=== PATIENT | female | born 1955 | race Hispanic/Latino ===

== ENCOUNTER 2017-07-02 07:56 | Inpatient (IN) | payer MEDICAID ==
[2017-07-02] MEDS ORDERED: DUONEB *Not for PRN Use IH ONE (08:25)
--- NOTE | 2017-07-02 08:30 | Emergency Department Report ---
HPI - General Chief Complaint: Dyspnea/Respdistress Time Seen by Provider: 07/02/17 08:11 - HPI HPI: This is a 62-year-old female who presents to the emergency department by EMS with complaint of progressively worsening shortness of breath. She has some intermittent chest pains and/or "twinges." The patient says that this is been going on for a long time but more recently it has gotten even worse with exertion and it is gotten to the point where she is unable to do her job appropriately. She has a past medical history of asthma, COPD, coronary artery disease with [place] in 2005 and stents placed, hypertension, peripheral vascular disease with previous ileo-bifemoral bypass and lower extremity stents, carotid artery disease and hyperlipidemia. She still is a daily smoker. 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 No recent travel or sick contacts at home. She has not taken anything for her symptoms prior to presentation. ED Past Medical Hx - Past Medical History Previous Medical History?: Yes Hx Hypertension: Yes Hx Heart Attack/AMI: Yes (IN 2005) Hx Arthritis: Yes Hx Asthma: Yes Hx COPD: Yes Additional medical history: HIGH CHOLESTEROL, peripheral vascular disease, carotid artery disease, aortobifemoral disease - Surgical History Past Surgical History?: Yes Hx Coronary Stent: Yes (X 4) Hx Cholecystectomy: Yes Additional Surgical History: Ileo-bifemoral bypass surgery - Social History Smoking Status: Current Every Day Smoker Substance Use Type: None - Medications Home Medications: Home Medications Medication Instructions Recorded Confirmed Last Taken Type Levothyroxine Sodium 137 mcg PO QAM 07/02/17 07/02/17 07/02/17 History [Levothyroxine] Metoprolol [Lopressor] 25 mg PO DAILY 07/02/17 07/02/17 07/02/17 History ED Review of Systems ROS: Stated complaint: DIFFICULTY BREATHING Other details as noted in HPI Comment: All other systems reviewed and negative Constitutional: denies: chills, fever Eyes: denies: eye pain, eye discharge, vision change ENT: denies: ear pain, throat pain Respiratory: cough, shortness of breath, SOB with exertion, wheezing Cardiovascular: chest pain (intermittent). denies: syncope Gastrointestinal: denies: abdominal pain, nausea, diarrhea Genitourinary: denies: urgency, dysuria, discharge Musculoskeletal: denies: back pain, joint swelling, arthralgia Skin: denies: rash, lesions Neurological: denies: headache, weakness, paresthesias Physical Exam - Physical Exam Vital Signs: Vital Signs 07/02/17 08:07 Temperature 98 F Pulse Rate 98 H Respiratory 22 Rate Blood Pressure 196/98 O2 Sat by Pulse 95 Oximetry Physical Exam: GENERAL: The patient is well-developed well-nourished. HENT: Normocephalic. Atraumatic. Patient has moist mucous membranes. EYES: Extraocular motions are intact. Pupils equal reactive to light bilaterally. NECK: Supple. Trachea is midline. CHEST/LUNGS: There is some wheezing that chest. A dry cough heard with coughing fits. No tachypnea or accessory muscle use. While at rest. There is no respiratory distress noted. HEART/CARDIOVASCULAR: Regular. There is no tachycardia. There is no murmur. ABDOMEN: Abdomen is soft, nontender. Patient has normal bowel sounds. There is no abdominal distention. SKIN: Skin is warm and dry. NEURO: The patient is awake, alert, and oriented. The patient is cooperative. The patient has no focal neurologic deficits. The patient has normal speech. MUSCULOSKELETAL: There is no tenderness or deformity. There is no limitation range of motion. There is no evidence of acute injury. ED Course Vital Signs 07/02/17 08:07 Temperature 98 F Pulse Rate 98 H Respiratory 22 Rate Blood Pressure 196/98 O2 Sat by Pulse 95 Oximetry ED Medical Decision Making - Lab Data Result diagrams: 07/02/17 08:32 07/02/17 08:35 - EKG Data -: EKG Interpreted by Me EKG shows normal: sinus rhythm, axis, intervals, QRS complexes, ST-T waves ( nonspecific ST-T waves, mild depression to the lateral leads) Rate: normal - EKG Data When compared to previous EKG there are: previous EKG unavailable Interpretation: nonspecific ST-T wave renaldo (with mild depression to the lateral leads) - Radiology Data Radiology results: report reviewed, image reviewed interpreted by me: Chest x-ray does not show any acute process. There are no pleural effusions, obvious pneumonia and there is no pneumothorax. CTA CHEST: HISTORY: Shortness of breath, elevated d-dimer. COMPARISON: none. TECHNIQUE: Helical CT in 1.25mm intervals following IV contrast. Pulmonary embolus protocol. Sagittal and coronal reformatted images. Rotational MIP images. FINDINGS: Contrast bolus is satisfactory. No pulmonary embolus is identified. Thyroid gland: Normal. Tracheobronchial tree: Normal. Esophagus: Normal. Heart: Normal. Pericardium: Normal. Mediastinum: No evidence for mass or adenopathy. Moderate atherosclerotic disease is noted in the thoracic aorta. No aneurysm or dissection. Lung Romero: Mild centrilobular emphysematous changes are identified in the upper lobes. Mild atelectatic changes at the lung bases. No evidence for mass or pneumonia. Pleural Spaces: Normal. 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 The remaining bony structures are intact. Moderate thoracic spondylosis. IMPRESSION: No evidence for pulmonary embolus. Mild emphysema. 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 Transcribed By: TTR Dictated By: GREGORY HERNANDEZ JR, MD Electronically Authenticated By: GREGORY HERNANDEZ JR, MD Signed Date/Time: 07/02/17 1022 Right lower extremity venous Doppler is negative for DVT. - Medical Decision Making Patient presents with some shortness of breath, intermittent chest pains, and some right leg pain and weakness with exertion. This appears consistent with some intermittent, occasionally the leg she has good distal pulses. Venous Doppler negative for DVT. Labs are mostly unremarkable. CT angiography shows emphysema but no PE, dissection. However the patient cannot walk very far without getting winded and having leg pain. She has a history of carotid stenosis, peripheral vascular disease, coronary artery disease. Please reason she will be admitted to the hospital for further evaluation and treatment has been accepted for admission by the hospitalist, Dr. Zimmer. - Differential Diagnosis COPD, PE, DVT, Intermittent claudication, carotid stenosis Critical Care Time: No Critical care attestation.: If time is entered above; I have spent that time in minutes in the direct care of this critically ill patient, excluding procedure time. ED Disposition Clinical Impression: Smoking, History of carotid artery disease, Intermittent claudication, Peripheral vascular disease Dyspnea Qualifiers: Dyspnea type: shortness of breath Qualified Code(s): R06.02 - Shortness of breath Disposition: OP ADMIT IP TO THIS HOSP Is pt being admited?: Yes Does the pt Need Aspirin: Yes Condition: Stable Time of Disposition: 12:26
[2017-07-02] MEDS ORDERED: APRESOLINE IV ONE (08:31)
--- NOTE | 2017-07-02 08:46 | XRay Report ---
AP CHEST: HISTORY: chest pain AP view of the chest demonstrates a normal mediastinal and cardiac contour with clear lungs and normal bony and soft tissue structures. IMPRESSION: No acute cardiopulmonary process identified.
[2017-07-02 09:03] LABS: Basophils % (Auto) 0.3 % (0.0-1.8); Eosinophils # (Auto) 0.2 K/mm3 (0.0-0.4); Eosinophils % (Auto) 3.1 % (0.0-4.3); Hematocrit 40.1 % (30.3-42.9); Hemoglobin 13.2 gm/dl (10.1-14.3); Lymphocytes # (Auto) 1.1 K/mm3 (1.2-5.4); Lymphocytes % (Auto) 16.8 % (13.4-35.0); Mean Corpuscular HGB Conc 33 % (30-34); Mean Corpuscular Hemoglobin 30 pg (28-32); Mean Corpuscular Volume 91 fl (79-97); Monocytes # (Auto) 0.9 K/mm3 (0.0-0.8); Monocytes % (Auto) 13.9 % (0.0-7.3); Platelet Count 242 K/mm3 (140-440); Red Blood Count 4.42 M/mm3 (3.65-5.03); Red Cell Distribution Width 14.6 % (13.2-15.2)
[2017-07-02 09:16] LABS: Alanine Aminotransferase 32 units/L (7-56); Albumin 3.9 g/dL (3.9-5); BUN/Creatinine Ratio 27; Blood Urea Nitrogen 16 mg/dL (7-17); Calcium 8.9 mg/dL (8.4-10.2); Hemolysis Index 20
[2017-07-02 09:40] LABS: Bilirubin,Urine NEG (Negative); Blood,Urine SM (Negative); Color,Urine Yellow (Yellow); Mucus,Urine FEW /HPF; Nitrite,Urine NEG (Negative); Protein,Urine <15 mg/dL mg/dL (Negative); Urobilinogen,Urine < 2.0 mg/dL (<2.0); WBC,Urine < 1.0 /HPF (0.0-6.0)
[2017-07-02] MEDS ORDERED: NACL ONE (10:06)
--- NOTE | 2017-07-02 10:28 | Cat Scan Report ---
CTA CHEST: HISTORY: Shortness of breath, elevated d-dimer. COMPARISON: none. TECHNIQUE: Helical CT in 1.25mm intervals following IV contrast. Pulmonary embolus protocol. Sagittal and coronal reformatted images. Rotational MIP images. FINDINGS: Contrast bolus is satisfactory. No pulmonary embolus is identified. Thyroid gland: Normal. Tracheobronchial tree: Normal. Esophagus: Normal. Heart: Normal. Pericardium: Normal. Mediastinum: No evidence for mass or adenopathy. Moderate atherosclerotic disease is noted in the thoracic aorta. No aneurysm or dissection. Lung Romero: Mild centrilobular emphysematous changes are identified in the upper lobes. Mild atelectatic changes at the lung bases. No evidence for mass or pneumonia. Pleural Spaces: Normal. 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 The remaining bony structures are intact. Moderate thoracic spondylosis. IMPRESSION: No evidence for pulmonary embolus. Mild emphysema. 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
[2017-07-02] MEDS: HEPARIN SUB-Q SCH ×2 (14:17→21:58)
[2017-07-02] MEDS ORDERED: NON-FORMULARY (Melatonin 5 MG) PO PRN (20:52)
--- NOTE | 2017-07-02 23:15 | History and Physical Report ---
History of Present Illness Date of examination: 07/02/17 Date of admission: 07/02/17 12:27 Chief complaint: Increasing SOB for 1 week History of present illness: ADAL 62-year-old female presents to the emergency department by EMS with complaint of progressively worsening shortness of breath. She has some intermittent chest pains and/or "twinges." The patient says that this is been going on for a long time but more recently it has gotten even worse with exertion and it is gotten to the point where she is unable to do her job appropriately. She has a past medical history of asthma, COPD, coronary artery disease with [place] in 2005 and stents placed, hypertension, peripheral vascular disease with previous ileo-bifemoral bypass and lower extremity stents, carotid artery disease and hyperlipidemia. She still is a daily smoker. 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 No recent travel or sick contacts at home. She has not taken anything for her symptoms prior to presentation. Past Medical History Previous Medical History?: Yes Hx Hypertension: Yes Hx Heart Attack/AMI: Yes (IN 2005) Hx Arthritis: Yes Hx Asthma: Yes Hx COPD: Yes Additional medical history: HIGH CHOLESTEROL, peripheral vascular disease, carotid artery disease, aortobifemoral disease -Surgical History Past Surgical History?: Yes Hx Coronary Stent: Yes (X 4) Hx Cholecystectomy: Yes Additional Surgical History: Ileo-bifemoral bypass surgery Social History Smoking Status: Current Every Day Smoker Substance Use Type: None Medications Home Medications: Home Medications Medication Instructions Recorded Confirmed Last Taken Type Levothyroxine Sodium 137 mcg PO QAM 07/02/17 07/02/17 07/02/17 History [Levothyroxine] Metoprolol [Lopressor] 25 mg PO DAILY 07/02/17 07/02/17 07/02/17 History Review of Systems Stated complaint: DIFFICULTY BREATHING Other details as noted in HPI Comment: All other systems reviewed and negative Constitutional: denies: chills, fever Eyes: denies: eye pain, eye discharge, vision change ENT: denies: ear pain, throat pain Respiratory: cough, shortness of breath, SOB with exertion, wheezing Cardiovascular: chest pain (intermittent). denies: syncope Gastrointestinal: denies: abdominal pain, nausea, diarrhea Genitourinary: denies: urgency, dysuria, discharge Musculoskeletal: denies: back pain, joint swelling, arthralgia Skin: denies: rash, lesions Neurological: denies: headache, weakness, paresthesias Medications and Allergies Allergies Allergy/AdvReac Type Severity Reaction Status Date / Time NSAIDS (Non-Steroidal AdvReac Unknown Verified 06/05/13 00:07 Anti-Inflamma Home Medications Medication Instructions Recorded Confirmed Last Taken Type Levothyroxine Sodium 137 mcg PO QAM 07/02/17 07/02/17 07/02/17 History [Levothyroxine] Metoprolol [Lopressor] 25 mg PO DAILY 07/02/17 07/02/17 07/02/17 History Active Meds: Active Medications Heparin Sodium (Porcine) (Heparin) 5,000 unit SUB-Q Q8HR STEVEN Last Admin: 07/02/17 21:58 Dose: 5,000 unit Miscellaneous Medication (Melatonin) 5 mg PO QHS PRN PRN Reason: Insomnia Exam - Constitutional Vitals: Temp Pulse Resp BP Pulse Ox 99.3 F 92 H 20 157/83 93 07/02/17 20:17 07/02/17 20:17 07/02/17 20:17 07/02/17 20:17 07/02/17 20:17 General appearance: Present: mild distress, well-nourished - EENT Eyes: Present: PERRL ENT: hearing intact, clear oral mucosa - Neck Neck: Present: supple, normal ROM - Respiratory Respiratory effort: normal Respiratory: bilateral: CTA, diminished, rhonchi - Cardiovascular Heart rate: 80 Rhythm: regular Heart Sounds: Present: S1 & S2. Absent: rub, click - Extremities Extremities: pulses symmetrical, No edema Peripheral Pulses: within normal limits - Abdominal General gastrointestinal: Present: soft, non-tender, non-distended, normal bowel sounds Female genitourinary: Present: normal - Rectal Rectal Exam: deferred - Integumentary Integumentary: Present: clear, warm, dry - Musculoskeletal Musculoskeletal: gait normal, strength equal bilaterally - Psychiatric Psychiatric: appropriate mood/affect, intact judgment & insight - Neurologic Neurologic: CNII-XII intact, moves all extremities - Allied Health Allied health notes reviewed: nursing, case management Results - Labs CBC & Chem 7: 07/02/17 08:32 07/02/17 08:35 Labs: Laboratory Last Values WBC 6.5 K/mm3 (4.5-11.0) 07/02/17 08:32 RBC 4.42 M/mm3 (3.65-5.03) 07/02/17 08:32 Hgb 13.2 gm/dl (10.1-14.3) 07/02/17 08:32 Hct 40.1 % (30.3-42.9) 07/02/17 08:32 MCV 91 fl (79-97) 07/02/17 08:32 MCH 30 pg (28-32) 07/02/17 08:32 MCHC 33 % (30-34) 07/02/17 08:32 RDW 14.6 % (13.2-15.2) 07/02/17 08:32 Plt Count 242 K/mm3 (140-440) 07/02/17 08:32 Lymph % (Auto) 16.8 % (13.4-35.0) 07/02/17 08:32 [place] % (Auto) 13.9 % (0.0-7.3) H 07/02/17 08:32 Eos % (Auto) 3.1 % (0.0-4.3) 07/02/17 08:32 Baso % (Auto) 0.3 % (0.0-1.8) 07/02/17 08:32 Lymph # 1.1 K/mm3 (1.2-5.4) L 07/02/17 08:32 [place] # 0.9 K/mm3 (0.0-0.8) H 07/02/17 08:32 Eos # 0.2 K/mm3 (0.0-0.4) 07/02/17 08:32 Baso # 0.0 K/mm3 (0.0-0.1) 07/02/17 08:32 Seg Neutrophils % 65.9 % (40.0-70.0) 07/02/17 08:32 Seg Neutrophils # 4.2 K/mm3 (1.8-7.7) 07/02/17 08:32 D-Dimer 489.27 ng/mlDDU (0-234) H 07/02/17 08:35 POC ABG pH 7.380 (7.35-7.45) 07/02/17 13:46 POC ABG pCO2 29.9 (35-45) L 07/02/17 13:46 POC ABG pO2 62 (80-105) L 07/02/17 13:46 POC ABG HCO3 17.7 07/02/17 13:46 POC ABG Total CO2 19 07/02/17 13:46 POC ABG O2 Sat 91 07/02/17 13:46 POC ABG Base Excess -7 07/02/17 13:46 FiO2 21 % 07/02/17 13:46 Sodium 134 mmol/L (137-145) L 07/02/17 08:35 Potassium 4.1 mmol/L (3.6-5.0) 07/02/17 08:35 Chloride 99.8 mmol/L (98-107) 07/02/17 08:35 Carbon Dioxide 21 mmol/L (22-30) L 07/02/17 08:35 Anion Gap 17 mmol/L 07/02/17 08:35 BUN 16 mg/dL (7-17) 07/02/17 08:35 Creatinine 0.6 mg/dL (0.7-1.2) L 07/02/17 08:35 Estimated GFR > 60 ml/min 07/02/17 08:35 BUN/Creatinine Ratio 27 % 07/02/17 08:35 Glucose 114 mg/dL (65-100) H 07/02/17 08:35 Calcium 8.9 mg/dL (8.4-10.2) 07/02/17 08:35 Total Bilirubin 0.20 mg/dL (0.1-1.2) 07/02/17 08:35 AST 17 units/L (5-40) 07/02/17 08:35 ALT 32 units/L (7-56) 07/02/17 08:35 Alkaline Phosphatase 97 units/L (35-129) 07/02/17 08:35 Troponin T < 0.010 ng/mL (0.00-0.029) 07/02/17 16:00 NT-Pro-B Natriuret Pep 332.7 pg/mL (0-900) 07/02/17 08:35 Total Protein 7.1 g/dL (6.3-8.2) 07/02/17 08:35 Albumin 3.9 g/dL (3.9-5) 07/02/17 08:35 Albumin/Globulin Ratio 1.2 % 07/02/17 08:35 Urine Color Yellow (Yellow) 07/02/17 09:05 Urine Turbidity Clear (Clear) 07/02/17 09:05 Urine pH 5.0 (5.0-7.0) 07/02/17 09:05 Ur Specific [place] 1.010 (1.003-1.030) 07/02/17 09:05 Urine Protein <15 mg/dl mg/dL (Negative) 07/02/17 09:05 Urine Glucose (UA) Neg mg/dL (Negative) 07/02/17 09:05 Urine Ketones Neg mg/dL (Negative) 07/02/17 09:05 Urine Blood Sm (Negative) 07/02/17 09:05 Urine Nitrite Neg (Negative) 07/02/17 09:05 Urine Bilirubin Neg (Negative) 07/02/17 09:05 Urine Urobilinogen < 2.0 mg/dL (<2.0) 07/02/17 09:05 Ur Leukocyte Esterase Neg (Negative) 07/02/17 09:05 Urine WBC (Auto) < 1.0 /HPF (0.0-6.0) 07/02/17 09:05 Urine RBC (Auto) 1.0 /HPF (0.0-6.0) 07/02/17 09:05 U Epithel Cells (Auto) 1.0 /HPF (0-13.0) 07/02/17 09:05 Urine Mucus Few /HPF 07/02/17 09:05 - Imaging and Cardiology Chest x-ray: report reviewed (NAF) CT scan - chest: report reviewed (NAF No PE) Assessment and Plan Advance Directives: Yes (Full code) VTE prophylaxis?: Chemical Plan of care discussed with patient/family: Yes - Patient Problems (1) COPD exacerbation Current Visit: Yes Status: Acute Plan to address problem: No resp failure Duonebs IV abx and iv solumedrol (2) Chest pain Current Visit: Yes Status: Chronic Plan to address problem: CE's and Lexiscan on 07/04/15 (3) Peripheral vascular disease Current Visit: Yes Status: Chronic Plan to address problem: on pletal (4) HTN (hypertension) Current Visit: Yes Status: Chronic Qualifiers: Hypertension type: essential hypertension Qualified Code(s): I10 - Essential (primary) hypertension Plan to address problem: Cont antihyertensives (5) Hypothyroidism (acquired) Current Visit: Yes Status: Chronic Plan to address problem: Cont Levothyroxine (6) Nicotine dependence Current Visit: Yes Status: Chronic Qualifiers: Nicotine product type: cigarettes Plan to address problem: Counselled 10 minutes Nicoderm patch initiated (7) DVT prophylaxis Current Visit: Yes Status: Acute Plan to address problem: On Lovenox
[2017-07-02] MEDS ORDERED: MILK OF MAGNESIA PO PRN (23:16)
[2017-07-02] MEDS ORDERED: DULCOLAX PR PRN (23:16)
[2017-07-02] MEDS ORDERED: DILAUDID IV PRN (23:16)
[2017-07-02] MEDS ORDERED: ZOFRAN IV PRN (23:16)
[2017-07-02] MEDS ORDERED: DUONEB *Not for PRN Use IH (23:19)
[2017-07-02] MEDS ORDERED: PROVENTIL IH PRN (23:30)
[2017-07-03] MEDS ORDERED: AMBIEN PO ONE (00:37)
[2017-07-03] MEDS: HABITROL TD SCH ×2 (01:06→21:43)
[2017-07-03] MEDS: SYNTHROID PO SCH ×2 (05:49)
[2017-07-03] MEDS: HEPARIN SUB-Q SCH ×3 (05:50→21:45)
[2017-07-03] MEDS: DUONEB *Not for PRN Use IH SCH ×4 (06:35→21:10)
[2017-07-03 08:43] LABS: Alanine Aminotransferase 34 units/L (7-56); BUN/Creatinine Ratio 28; Blood Urea Nitrogen 17 mg/dL (7-17); Calcium 8.9 mg/dL (8.4-10.2); Hemolysis Index 8
[2017-07-03] MEDS ORDERED: NON-FORMULARY (Levothyroxine Sodium [Levothyroxine] 137 MCG) PO SCH (10:00)
[2017-07-03] MEDS: LEVAQUIN 750MG/150ML 750 MG/150 ML BAG IV SCH (11:00)
[2017-07-03] MEDS: LOPRESSOR PO SCH (11:01)
[2017-07-03] MEDS: PEPCID PO SCH ×2 (11:01→21:43)
--- NOTE | 2017-07-03 11:02 | Progress Note ---
Assessment and Plan Assessment and plan: COPD exacerbation Duonebs IV abx and iv solumedrol Chest pain CE's and Lexiscan on 07/04/15 Peripheral vascular disease Cont. on pletal HTN (hypertension) Cont antihyertensives Hypothyroidism (acquired) Cont Levothyroxine Nicotine dependence Counseled in the ER on admission. Pt. reports 42 pack year history Urinary incontinence Start ditropan DVT prophylaxis On Lovenox History Interval history: No new c/o CP. Mild SOB with exertion Hospitalist Physical - Constitutional Vitals: Temp Pulse Resp BP Pulse Ox 98.5 F 85 16 124/58 94 07/03/17 07:46 07/03/17 08:45 07/03/17 08:45 07/03/17 07:46 07/03/17 07:46 General appearance: Present: no acute distress, well-nourished - EENT Eyes: Present: PERRL, EOM intact ENT: hearing intact, clear oral mucosa, dentition normal - Neck Neck: Present: supple, normal ROM - Respiratory Respiratory effort: normal Respiratory: bilateral: diminished, rhonchi, wheezing - Cardiovascular Rhythm: regular Heart Sounds: Present: S1 & S2. Absent: gallop, rub - Extremities Extremities: no ischemia, No edema, Full ROM - Abdominal General gastrointestinal: soft, non-tender, non-distended, normal bowel sounds - Integumentary Integumentary: Present: clear, warm, dry - Neurologic Neurologic: CNII-XII intact, moves all extremities Results - Labs CBC & Chem 7: 07/02/17 08:32 07/03/17 07:36 Labs: Laboratory Last Values WBC 6.5 K/mm3 (4.5-11.0) 07/02/17 08:32 RBC 4.42 M/mm3 (3.65-5.03) 07/02/17 08:32 Hgb 13.2 gm/dl (10.1-14.3) 07/02/17 08:32 Hct 40.1 % (30.3-42.9) 07/02/17 08:32 MCV 91 fl (79-97) 07/02/17 08:32 MCH 30 pg (28-32) 07/02/17 08:32 MCHC 33 % (30-34) 07/02/17 08:32 RDW 14.6 % (13.2-15.2) 07/02/17 08:32 Plt Count 242 K/mm3 (140-440) 07/02/17 08:32 Lymph % (Auto) 16.8 % (13.4-35.0) 07/02/17 08:32 [place] % (Auto) 13.9 % (0.0-7.3) H 07/02/17 08:32 Eos % (Auto) 3.1 % (0.0-4.3) 07/02/17 08:32 Baso % (Auto) 0.3 % (0.0-1.8) 07/02/17 08:32 Lymph # 1.1 K/mm3 (1.2-5.4) L 07/02/17 08:32 [place] # 0.9 K/mm3 (0.0-0.8) H 07/02/17 08:32 Eos # 0.2 K/mm3 (0.0-0.4) 07/02/17 08:32 Baso # 0.0 K/mm3 (0.0-0.1) 07/02/17 08:32 Seg Neutrophils % 65.9 % (40.0-70.0) 07/02/17 08:32 Seg Neutrophils # 4.2 K/mm3 (1.8-7.7) 07/02/17 08:32 D-Dimer 489.27 ng/mlDDU (0-234) H 07/02/17 08:35 POC ABG pH 7.380 (7.35-7.45) 07/02/17 13:46 POC ABG pCO2 29.9 (35-45) L 07/02/17 13:46 POC ABG pO2 62 (80-105) L 07/02/17 13:46 POC ABG HCO3 17.7 07/02/17 13:46 POC ABG Total CO2 19 07/02/17 13:46 POC ABG O2 Sat 91 07/02/17 13:46 POC ABG Base Excess -7 07/02/17 13:46 FiO2 21 % 07/02/17 13:46 Sodium 140 mmol/L (137-145) 07/03/17 07:36 Potassium 4.7 mmol/L (3.6-5.0) 07/03/17 07:36 Chloride 100.0 mmol/L (98-107) 07/03/17 07:36 Carbon Dioxide 22 mmol/L (22-30) 07/03/17 07:36 Anion Gap 23 mmol/L 07/03/17 07:36 BUN 17 mg/dL (7-17) 07/03/17 07:36 Creatinine 0.6 mg/dL (0.7-1.2) L 07/03/17 07:36 Estimated GFR > 60 ml/min 07/03/17 07:36 BUN/Creatinine Ratio 28 % 07/03/17 07:36 Glucose 162 mg/dL (65-100) H 07/03/17 07:36 Hemoglobin A1c 5.6 % (4-6) 07/02/17 23:42 Calcium 8.9 mg/dL (8.4-10.2) 07/03/17 07:36 Total Bilirubin < 0.20 mg/dL (0.1-1.2) 07/03/17 07:36 AST 16 units/L (5-40) 07/03/17 07:36 ALT 34 units/L (7-56) 07/03/17 07:36 Alkaline Phosphatase 95 units/L (35-129) 07/03/17 07:36 Troponin T < 0.010 ng/mL (0.00-0.029) 07/03/17 07:36 NT-Pro-B Natriuret Pep 332.7 pg/mL (0-900) 07/02/17 08:35 Total Protein 7.3 g/dL (6.3-8.2) 07/03/17 07:36 Albumin 4.0 g/dL (3.9-5) 07/03/17 07:36 Albumin/Globulin Ratio 1.2 % 07/03/17 07:36 Urine Color Yellow (Yellow) 07/02/17 09:05 Urine Turbidity Clear (Clear) 07/02/17 09:05 Urine pH 5.0 (5.0-7.0) 07/02/17 09:05 Ur Specific [place] 1.010 (1.003-1.030) 07/02/17 09:05 Urine Protein <15 mg/dl mg/dL (Negative) 07/02/17 09:05 Urine Glucose (UA) Neg mg/dL (Negative) 07/02/17 09:05 Urine Ketones Neg mg/dL (Negative) 07/02/17 09:05 Urine Blood Sm (Negative) 07/02/17 09:05 Urine Nitrite Neg (Negative) 07/02/17 09:05 Urine Bilirubin Neg (Negative) 07/02/17 09:05 Urine Urobilinogen < 2.0 mg/dL (<2.0) 07/02/17 09:05 Ur Leukocyte Esterase Neg (Negative) 07/02/17 09:05 Urine WBC (Auto) < 1.0 /HPF (0.0-6.0) 07/02/17 09:05 Urine RBC (Auto) 1.0 /HPF (0.0-6.0) 07/02/17 09:05 U Epithel Cells (Auto) 1.0 /HPF (0-13.0) 07/02/17 09:05 Urine Mucus Few /HPF 07/02/17 09:05
[2017-07-03] MEDS: PLETAL PO SCH ×2 (11:16→21:43)
[2017-07-03] MEDS: DITROPAN PO SCH ×2 (11:43→21:43)
[2017-07-03] MEDS ORDERED: Fluarix Quad 2017-2018(36 MOS+ IM ONE (12:00)
[2017-07-03] MEDS: PERCOCET 5/325 PO PRN (23:47)
[2017-07-04] MEDS ORDERED: TESSALON PERLES PO PRN (00:20)
[2017-07-04] MEDS: DUONEB *Not for PRN Use IH SCH ×4 (02:01→19:42)
[2017-07-04] MEDS: SYNTHROID PO SCH ×2 (05:03)
[2017-07-04] MEDS: HEPARIN SUB-Q SCH ×3 (05:04→22:52)
[2017-07-04 06:38] LABS: Basophils % (Auto) 0.1 % (0.0-1.8); Hematocrit 37.2 % (30.3-42.9); Hemoglobin 12.5 gm/dl (10.1-14.3); Lymphocytes % (Auto) 9.7 % (13.4-35.0); Mean Corpuscular HGB Conc 34 % (30-34); Mean Corpuscular Hemoglobin 31 pg (28-32); Mean Corpuscular Volume 91 fl (79-97); Monocytes # (Auto) 0.7 K/mm3 (0.0-0.8); Monocytes % (Auto) 7.2 % (0.0-7.3); Platelet Count 225 K/mm3 (140-440); Red Blood Count 4.08 M/mm3 (3.65-5.03); Red Cell Distribution Width 14.9 % (13.2-15.2)
[2017-07-04 06:46] LABS: BUN/Creatinine Ratio 35; Blood Urea Nitrogen 21 mg/dL (7-17); Calcium 8.7 mg/dL (8.4-10.2); Hemolysis Index 14
[2017-07-04] MEDS ORDERED: LEXISCAN IV ONE ×2 (08:41→08:43)
--- NOTE | 2017-07-04 10:31 | Progress Note ---
Assessment and Plan Assessment and plan: COPD exacerbation Duonebs IV abx and iv solumedrol Chest pain F/U Lexiscan today. CE are negative Peripheral vascular disease Cont. on pletal. Pt. c/o RLE pain with ambulation ? ischemic pain. Pt with previuos stent. Vascular consult HTN (hypertension) Cont antihyertensives Hypothyroidism (acquired) Cont Levothyroxine Nicotine dependence Counseled in the ER on admission. Pt. reports 42 pack year history Urinary incontinence Start ditropan DVT prophylaxis On Lovenox History Interval history: No new c/o CP. Mild SOB with exertion. Pt. also c/o RLE pain with ambulation. ? ischemic pain. Hospitalist Physical - Constitutional Vitals: Temp Pulse Resp BP Pulse Ox 98.0 F 95 H 22 133/73 93 07/03/17 23:32 07/03/17 23:32 07/03/17 23:32 07/03/17 23:32 07/03/17 23:32 General appearance: Present: no acute distress, well-nourished - EENT Eyes: Present: PERRL, EOM intact ENT: hearing intact, clear oral mucosa, dentition normal - Neck Neck: Present: supple, normal ROM - Respiratory Respiratory effort: normal Respiratory: bilateral: CTA - Cardiovascular Rhythm: regular Heart Sounds: Present: S1 & S2. Absent: gallop, rub - Extremities Extremities: no ischemia, No edema, Full ROM - Abdominal General gastrointestinal: soft, non-tender, non-distended, normal bowel sounds - Integumentary Integumentary: Present: clear, warm, dry - Neurologic Neurologic: CNII-XII intact, moves all extremities Results - Labs CBC & Chem 7: 07/04/17 06:07 07/04/17 06:07 Labs: Laboratory Last Values WBC 9.9 K/mm3 (4.5-11.0) 07/04/17 06:07 RBC 4.08 M/mm3 (3.65-5.03) 07/04/17 06:07 Hgb 12.5 gm/dl (10.1-14.3) 07/04/17 06:07 Hct 37.2 % (30.3-42.9) 07/04/17 06:07 MCV 91 fl (79-97) 07/04/17 06:07 MCH 31 pg (28-32) 07/04/17 06:07 MCHC 34 % (30-34) 07/04/17 06:07 RDW 14.9 % (13.2-15.2) 07/04/17 06:07 Plt Count 225 K/mm3 (140-440) 07/04/17 06:07 Lymph % (Auto) 9.7 % (13.4-35.0) L 07/04/17 06:07 [place] % (Auto) 7.2 % (0.0-7.3) 07/04/17 06:07 Eos % (Auto) 0.0 % (0.0-4.3) 07/04/17 06:07 Baso % (Auto) 0.1 % (0.0-1.8) 07/04/17 06:07 Lymph # 1.0 K/mm3 (1.2-5.4) L 07/04/17 06:07 [place] # 0.7 K/mm3 (0.0-0.8) 07/04/17 06:07 Eos # 0.0 K/mm3 (0.0-0.4) 07/04/17 06:07 Baso # 0.0 K/mm3 (0.0-0.1) 07/04/17 06:07 Seg Neutrophils % 83.0 % (40.0-70.0) H 07/04/17 06:07 Seg Neutrophils # 8.2 K/mm3 (1.8-7.7) H 07/04/17 06:07 D-Dimer 489.27 ng/mlDDU (0-234) H 07/02/17 08:35 POC ABG pH 7.380 (7.35-7.45) 07/02/17 13:46 POC ABG pCO2 29.9 (35-45) L 07/02/17 13:46 POC ABG pO2 62 (80-105) L 07/02/17 13:46 POC ABG HCO3 17.7 07/02/17 13:46 POC ABG Total CO2 19 07/02/17 13:46 POC ABG O2 Sat 91 07/02/17 13:46 POC ABG Base Excess -7 07/02/17 13:46 FiO2 21 % 07/02/17 13:46 Sodium 140 mmol/L (137-145) 07/04/17 06:07 Potassium 4.6 mmol/L (3.6-5.0) 07/04/17 06:07 Chloride 102.0 mmol/L (98-107) 07/04/17 06:07 Carbon Dioxide 23 mmol/L (22-30) 07/04/17 06:07 Anion Gap 20 mmol/L 07/04/17 06:07 BUN 21 mg/dL (7-17) H 07/04/17 06:07 Creatinine 0.6 mg/dL (0.7-1.2) L 07/04/17 06:07 Estimated GFR > 60 ml/min 07/04/17 06:07 BUN/Creatinine Ratio 35 % 07/04/17 06:07 Glucose 165 mg/dL (65-100) H 07/04/17 06:07 Hemoglobin A1c 5.6 % (4-6) 07/02/17 23:42 Calcium 8.7 mg/dL (8.4-10.2) 07/04/17 06:07 Total Bilirubin < 0.20 mg/dL (0.1-1.2) 07/03/17 07:36 AST 16 units/L (5-40) 07/03/17 07:36 ALT 34 units/L (7-56) 07/03/17 07:36 Alkaline Phosphatase 95 units/L (35-129) 07/03/17 07:36 Troponin T < 0.010 ng/mL (0.00-0.029) 07/04/17 06:07 NT-Pro-B Natriuret Pep 332.7 pg/mL (0-900) 07/02/17 08:35 Total Protein 7.3 g/dL (6.3-8.2) 07/03/17 07:36 Albumin 4.0 g/dL (3.9-5) 07/03/17 07:36 Albumin/Globulin Ratio 1.2 % 07/03/17 07:36 Urine Color Yellow (Yellow) 07/02/17 09:05 Urine Turbidity Clear (Clear) 07/02/17 09:05 Urine pH 5.0 (5.0-7.0) 07/02/17 09:05 Ur Specific [place] 1.010 (1.003-1.030) 07/02/17 09:05 Urine Protein <15 mg/dl mg/dL (Negative) 07/02/17 09:05 Urine Glucose (UA) Neg mg/dL (Negative) 07/02/17 09:05 Urine Ketones Neg mg/dL (Negative) 07/02/17 09:05 Urine Blood Sm (Negative) 07/02/17 09:05 Urine Nitrite Neg (Negative) 07/02/17 09:05 Urine Bilirubin Neg (Negative) 07/02/17 09:05 Urine Urobilinogen < 2.0 mg/dL (<2.0) 07/02/17 09:05 Ur Leukocyte Esterase Neg (Negative) 07/02/17 09:05 Urine WBC (Auto) < 1.0 /HPF (0.0-6.0) 07/02/17 09:05 Urine RBC (Auto) 1.0 /HPF (0.0-6.0) 07/02/17 09:05 U Epithel Cells (Auto) 1.0 /HPF (0-13.0) 07/02/17 09:05 Urine Mucus Few /HPF 07/02/17 09:05 Influenza A (Rapid) Negative (Negative) 07/03/17 11:45 Influenza B (Rapid) Negative (Negative) 07/03/17 11:45
[2017-07-04] MEDS: PERCOCET 5/325 PO PRN (12:30)
[2017-07-04] MEDS: LOPRESSOR PO SCH (12:36)
[2017-07-04] MEDS: LEVAQUIN 750MG/150ML 750 MG/150 ML BAG IV SCH (12:37)
[2017-07-04] MEDS: DITROPAN PO SCH ×2 (12:37→22:56)
[2017-07-04] MEDS: PEPCID PO SCH ×2 (12:47→22:55)
[2017-07-04] MEDS: PLETAL PO SCH ×2 (12:47→23:01)
--- NOTE | 2017-07-04 13:52 | Consultation ---
History of Present Illness - Reason for Consult Consult date: 07/04/17 Right leg pain - History of Present Illness 62-year-old female smoker with past medical history of COPD, asthma, CAD with FL in 2005 s/p 4 stents, HTN, PAD with right iliac stents, known severe carotid stenosis who presented to the emergency department by EMS with complaint of progressively worsening shortness of breath, intermittent chest pains and/or "twinges." This has been going on for a long time but more recently it has gotten even worse with exertion and it is gotten to the point where she is unable to do her job appropriately. Regarding her right leg, she reports that she can walk approximately 20 feet before experiencing claudication which is lifestyle limiting and disabling. She hangs her foot off the bed at night, but this is secondary to restless legs , so she doesn't kick her other leg. The patient also reports that she has had a severe 75% internal carotid artery narrowing for multiple years, at least 10. Denies TIA. No history of bypass. The patient reports a history of right iliac artery stenting 10 years ago. Past History Past Medical History: acute FL (2005 s/p 4 stents), arthritis, CAD, COPD (w/ asthma), hypertension, hyperlipidemia, hypothyroidism, PVD, other (carotid artery disease) Past Surgical History: cholecystectomy, Other (4 coronary stents ; right iliac stent ) Social history: smoking Family history: no significant family history Medications and Allergies Allergies Allergy/AdvReac Type Severity Reaction Status Date / Time NSAIDS (Non-Steroidal AdvReac Unknown Verified 06/05/13 00:07 Anti-Inflamma Home Medications Medication Instructions Recorded Confirmed Last Taken Type Levothyroxine Sodium 137 mcg PO QAM 07/02/17 07/02/17 07/02/17 History [Levothyroxine] Metoprolol [Lopressor] 25 mg PO DAILY 07/02/17 07/02/17 07/02/17 History Active Meds: Active Medications Acetaminophen (Tylenol) 650 mg PO Q4H PRN PRN Reason: Pain MILD(1-3)/Fever >100.5/ÁLVAREZ Albuterol (Proventil) 2.5 mg IH Q3HRT PRN PRN Reason: Wheezing Albuterol/Ipratropium (Duoneb *Not For Prn Use*) 1 ampul IH Q6HRT STEVEN Last Admin: 07/04/17 09:18 Dose: Not Given Benzonatate (Tessalon Perles) 100 mg PO Q8HR PRN PRN Reason: Cough Bisacodyl (Dulcolax) 10 mg AR QDAY PRN PRN Reason: Constipation unrelieved by MOM Cilostazol (Pletal) 100 mg PO BID [facility] Last Admin: 07/04/17 12:47 Dose: 100 mg Famotidine (Pepcid) 20 mg PO BID [facility] Last Admin: 07/04/17 12:47 Dose: 20 mg Heparin Sodium (Porcine) (Heparin) 5,000 unit SUB-Q Q8HR [facility] Last Admin: 07/04/17 05:04 Dose: 5,000 unit Hydromorphone HCl (Dilaudid) 0.5 mg IV Q3H PRN PRN Reason: Pain , Severe (7-10) Levofloxacin/Dextrose (Levaquin 750mg/150ml) 750 mg in 150 mls @ 100 mls/hr IV Q24HR [facility] PRN Reason: Protocol Last Admin: 07/04/17 12:37 Dose: 100 mls/hr Levothyroxine Sodium (Synthroid) 112 mcg PO DAILY@0600 [facility] Last Admin: 07/04/17 05:03 Dose: 112 mcg Levothyroxine Sodium (Synthroid) 25 mcg PO DAILY@0600 [facility] Last Admin: 07/04/17 05:03 Dose: 25 mcg Magnesium Hydroxide (Milk Of Magnesia) 30 ml PO Q4H PRN PRN Reason: Constipation Methylprednisolone Sodium Succinate (Solu-Medrol) 60 mg IV Q8HR [facility] Last Admin: 07/04/17 05:03 Dose: 60 mg Metoprolol Tartrate (Lopressor) 25 mg PO DAILY [facility] Last Admin: 07/04/17 12:36 Dose: 25 mg Nicotine (Habitrol) 21 mg TD QDAY@2200 [facility] Last Admin: 07/03/17 21:43 Dose: 21 mg Ondansetron HCl (Zofran) 4 mg IV Q8H PRN PRN Reason: N/V unrelieved by Reglan Oxybutynin Chloride (Ditropan) 5 mg PO BID [facility] Last Admin: 07/04/17 12:37 Dose: 5 mg Oxycodone/Acetaminophen (Percocet 5/325) 1 tab PO Q6H PRN PRN Reason: Pain, Moderate (4-6) Last Admin: 07/04/17 12:30 Dose: 1 tab Review of Systems All systems: negative (see HPI) Exam - Constitutional Vitals: Temp Pulse Resp BP Pulse Ox 98.4 F 81 20 150/80 94 07/04/17 12:31 07/04/17 12:31 07/04/17 12:31 07/04/17 12:31 07/04/17 12:31 General appearance: Present: no acute distress - EENT Eyes: Present: EOM intact ENT: hearing intact - Neck Neck: Present: supple - Respiratory Respiratory effort: normal - Extremities Extremities: normal temperature, normal color Peripheral Pulses: abnormal (right pedal pulses nonpalpable ; left pedal pulses palpable) - Abdominal General gastrointestinal: Present: soft - Psychiatric Psychiatric: appropriate mood/affect, cooperative Results - Labs CBC & Chem 7: 07/04/17 06:07 07/04/17 06:07 Labs: Abnormal lab results 07/04/17 07/04/17 Range/Units 06:07 06:07 Lymph % (Auto) 9.7 L (13.4-35.0) % Lymph # 1.0 L (1.2-5.4) K/mm3 Seg Neutrophils % 83.0 H (40.0-70.0) % Seg Neutrophils # 8.2 H (1.8-7.7) K/mm3 BUN 21 H (7-17) mg/dL Creatinine 0.6 L (0.7-1.2) mg/dL Glucose 165 H (65-100) mg/dL Assessment and Plan 62-year-old female with COPD, coronary artery disease with 4 stents, cholecystectomy, right iliac stenting, known carotid artery disease and peripheral vascular disease who presents with multiple complaints after obtaining insurance which she did not have for 10 years. The patient is being stressed for her chest pain. She claims to have known at least 75% internal carotid artery narrowing and is obtaining a carotid ultrasound for her known carotid artery disease. No TIA. Further recommendations based on carotid ultrasound. She is obtaining arterial Dopplers for her known right iliac disease. She has palpable left pedal pulses are nonpalpable right pedal pulses. I suspect she has either occlusion or stenosis of the right iliac arteries. Further recommendations based on lower extremity arterial ultrasound.
[2017-07-04] MEDS ORDERED: PLAVIX PO ONE (15:46)
--- NOTE | 2017-07-04 18:56 | Cat Scan Report ---
FINAL REPORT EXAM: CT ANGIO NECK HISTORY: carotid stenosis/occlusion TECHNIQUE: CT of the head and neck with intravenous contrast CT angiogram multiplanar and maximum intensity projection reconstructions were obtained PRIORS: None. FINDINGS: There is calcified and noncalcified plaque at the aortic arch At the origin of the right brachiocephalic there is some calcified plaque formation with focal stenosis estimated approximately 60 percent. Right subclavian artery is patent The right common carotid artery demonstrates some calcified plaque formation without hemodynamically significant stenosis estimated approximately 30 percent. There is calcified plaque at the origin of the right ICA and carotid bulb estimated degree of stenosis approximately 50-60 percent. The mid to distal right ICA is patent. There is calcified plaque within the cavernous right ICA without hemodynamically significant stenosis. There is complete occlusion of the left common carotid artery at the origin. At the bifurcation of the left ECA and ICA there is significant calcified and noncalcified plaque formation. There is flow to the left ICA and ECA distributions. At the cavernous left ICA there is calcified and noncalcified plaque with moderate stenosis. Both vertebral arteries are patent. There is luminal narrowing with plaque formation at the origin of the left vertebral artery with moderate stenosis appears greater than 50 percent Basilar artery is patent and there is flow seen to the EXCAVATOR BACKHOE OPERATOR distributions bilaterally The VIMAL and MCA distributions are unremarkable bilaterally. No evidence for major vascular occlusion. IMPRESSION: Complete occlusion of the left common carotid artery. Significant plaque formation at the left carotid bulb with flow seen to the left ICA Calcified plaque at the origin of the right carotid bulb estimated degree of stenosis in the 50-60 percent range Calcified plaque with moderate stenosis at the cavernous right and left ICAs Stenosis with plaque formation at the origin of the left vertebral artery with moderate stenosis
--- NOTE | 2017-07-04 19:25 | Cat Scan Report ---
FINAL REPORT EXAM: CT ANGIO HEAD HISTORY: carotid stenosis/occlusion TECHNIQUE: CT angiogram head with intravenous contrast PRIORS: None. FINDINGS: Both vertebral arteries are patent. There is luminal narrowing with plaque formation at the origin of the left vertebral artery with moderate stenosis appears greater than 50 percent Basilar artery is patent and there is flow seen to the DOUGH SCALER AND MIXER distributions bilaterally The VIMAL and MCA distributions are unremarkable bilaterally. No evidence for major vascular occlusion. Please see report for today's CTA neck for additional findings IMPRESSION: No evidence for major vascular occlusion or aneurysm intracranially. Calcified plaque is noted in the cavernous ICAs bilaterally
[2017-07-04] MEDS: HABITROL TD SCH (22:57)
[2017-07-05] MEDS: SYNTHROID PO SCH ×2 (06:50)
[2017-07-05] MEDS: HEPARIN SUB-Q SCH ×3 (06:51→21:38)
[2017-07-05] MEDS: DUONEB *Not for PRN Use IH SCH ×3 (07:59→19:44)
--- NOTE | 2017-07-05 10:33 | Progress Note ---
Assessment and Plan Assessment and plan: COPD exacerbation Duonebs IV abx and iv solumedrol Chest pain F/U Lexiscan today. CE are negative. Echocardiogram reveals global left ventricular systolic function that is normal with EF of 55%. Abnormal left ventricular diastolic filling consistent with impaired relaxation. Carotid stenosis. Patient with occluded left common carotid artery and left ICA. Right ICA with 50-79% stenosis. Vascular following. Peripheral vascular disease Cont. on pletal. Patient with probable occlusion or stenosis of right iliac arteries. Vascular following HTN (hypertension) Cont antihyertensives Hypothyroidism (acquired) Cont Levothyroxine Nicotine dependence Counseled in the ER on admission. Pt. reports 42 pack year history Urinary incontinence Start ditropan DVT prophylaxis On Lovenox History Interval history: No new c/o CP. Hospitalist Physical - Constitutional Vitals: Temp Pulse Resp BP Pulse Ox 97.7 F 98 H 18 130/79 94 07/05/17 08:21 07/05/17 08:21 07/05/17 08:21 07/05/17 08:21 07/05/17 08:21 General appearance: Present: no acute distress - EENT Eyes: Present: PERRL, EOM intact ENT: hearing intact, clear oral mucosa, dentition normal - Neck Neck: Present: supple, normal ROM - Respiratory Respiratory effort: normal Respiratory: bilateral: CTA - Cardiovascular Rhythm: regular Heart Sounds: Present: S1 & S2. Absent: gallop, rub - Extremities Extremities: no ischemia, No edema, Full ROM - Abdominal General gastrointestinal: soft, non-tender, non-distended, normal bowel sounds - Integumentary Integumentary: Present: clear, warm, dry - Neurologic Neurologic: CNII-XII intact, moves all extremities Results - Labs CBC & Chem 7: 07/04/17 06:07 07/04/17 06:07 Labs: Laboratory Last Values WBC 9.9 K/mm3 (4.5-11.0) 07/04/17 06:07 RBC 4.08 M/mm3 (3.65-5.03) 07/04/17 06:07 Hgb 12.5 gm/dl (10.1-14.3) 07/04/17 06:07 Hct 37.2 % (30.3-42.9) 07/04/17 06:07 MCV 91 fl (79-97) 07/04/17 06:07 MCH 31 pg (28-32) 07/04/17 06:07 MCHC 34 % (30-34) 07/04/17 06:07 RDW 14.9 % (13.2-15.2) 07/04/17 06:07 Plt Count 225 K/mm3 (140-440) 07/04/17 06:07 Lymph % (Auto) 9.7 % (13.4-35.0) L 07/04/17 06:07 [place] % (Auto) 7.2 % (0.0-7.3) 07/04/17 06:07 Eos % (Auto) 0.0 % (0.0-4.3) 07/04/17 06:07 Baso % (Auto) 0.1 % (0.0-1.8) 07/04/17 06:07 Lymph # 1.0 K/mm3 (1.2-5.4) L 07/04/17 06:07 [place] # 0.7 K/mm3 (0.0-0.8) 07/04/17 06:07 Eos # 0.0 K/mm3 (0.0-0.4) 07/04/17 06:07 Baso # 0.0 K/mm3 (0.0-0.1) 07/04/17 06:07 Seg Neutrophils % 83.0 % (40.0-70.0) H 07/04/17 06:07 Seg Neutrophils # 8.2 K/mm3 (1.8-7.7) H 07/04/17 06:07 D-Dimer 489.27 ng/mlDDU (0-234) H 07/02/17 08:35 POC ABG pH 7.380 (7.35-7.45) 07/02/17 13:46 POC ABG pCO2 29.9 (35-45) L 07/02/17 13:46 POC ABG pO2 62 (80-105) L 07/02/17 13:46 POC ABG HCO3 17.7 07/02/17 13:46 POC ABG Total CO2 19 07/02/17 13:46 POC ABG O2 Sat 91 07/02/17 13:46 POC ABG Base Excess -7 07/02/17 13:46 FiO2 21 % 07/02/17 13:46 Sodium 140 mmol/L (137-145) 07/04/17 06:07 Potassium 4.6 mmol/L (3.6-5.0) 07/04/17 06:07 Chloride 102.0 mmol/L (98-107) 07/04/17 06:07 Carbon Dioxide 23 mmol/L (22-30) 07/04/17 06:07 Anion Gap 20 mmol/L 07/04/17 06:07 BUN 21 mg/dL (7-17) H 07/04/17 06:07 Creatinine 0.6 mg/dL (0.7-1.2) L 07/04/17 06:07 Estimated GFR > 60 ml/min 07/04/17 06:07 BUN/Creatinine Ratio 35 % 07/04/17 06:07 Glucose 165 mg/dL (65-100) H 07/04/17 06:07 Hemoglobin A1c 5.6 % (4-6) 07/02/17 23:42 Calcium 8.7 mg/dL (8.4-10.2) 07/04/17 06:07 Total Bilirubin < 0.20 mg/dL (0.1-1.2) 07/03/17 07:36 AST 16 units/L (5-40) 07/03/17 07:36 ALT 34 units/L (7-56) 07/03/17 07:36 Alkaline Phosphatase 95 units/L (35-129) 07/03/17 07:36 Troponin T < 0.010 ng/mL (0.00-0.029) 07/04/17 06:07 NT-Pro-B Natriuret Pep 332.7 pg/mL (0-900) 07/02/17 08:35 Total Protein 7.3 g/dL (6.3-8.2) 07/03/17 07:36 Albumin 4.0 g/dL (3.9-5) 07/03/17 07:36 Albumin/Globulin Ratio 1.2 % 07/03/17 07:36 Urine Color Yellow (Yellow) 07/02/17 09:05 Urine Turbidity Clear (Clear) 07/02/17 09:05 Urine pH 5.0 (5.0-7.0) 07/02/17 09:05 Ur Specific [place] 1.010 (1.003-1.030) 07/02/17 09:05 Urine Protein <15 mg/dl mg/dL (Negative) 07/02/17 09:05 Urine Glucose (UA) Neg mg/dL (Negative) 07/02/17 09:05 Urine Ketones Neg mg/dL (Negative) 07/02/17 09:05 Urine Blood Sm (Negative) 07/02/17 09:05 Urine Nitrite Neg (Negative) 07/02/17 09:05 Urine Bilirubin Neg (Negative) 07/02/17 09:05 Urine Urobilinogen < 2.0 mg/dL (<2.0) 07/02/17 09:05 Ur Leukocyte Esterase Neg (Negative) 07/02/17 09:05 Urine WBC (Auto) < 1.0 /HPF (0.0-6.0) 07/02/17 09:05 Urine RBC (Auto) 1.0 /HPF (0.0-6.0) 07/02/17 09:05 U Epithel Cells (Auto) 1.0 /HPF (0-13.0) 07/02/17 09:05 Urine Mucus Few /HPF 07/02/17 09:05 Influenza A (Rapid) Negative (Negative) 07/03/17 11:45 Influenza B (Rapid) Negative (Negative) 07/03/17 11:45
[2017-07-05] MEDS: PEPCID PO SCH ×2 (11:20→21:39)
[2017-07-05] MEDS: PLAVIX PO SCH (11:20)
[2017-07-05] MEDS: LOPRESSOR PO SCH (11:20)
[2017-07-05] MEDS: LEVAQUIN PO SCH (11:21)
[2017-07-05] MEDS: DITROPAN PO SCH ×2 (11:21→21:39)
[2017-07-05] MEDS: PLETAL PO SCH ×2 (11:21→21:39)
--- NOTE | 2017-07-05 15:44 | Progress Note ---
Assessment and Plan CT Scans and duplex reviewed. Pt with a left carotid occlusion and what appears to be an 80-99% asymptomatic right carotid stenosis. She needs an elective right carotid endarterectomy. She is currently on Plavix, recommend statin therapy. She will need Cardiac Clearance, recommend Cardiology consult. Pt also has lower ext arterial dz, but treatment will be deferred until she recovers from her carotid surgery. Encouraged smoking cessation. 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 Objective - Constitutional Vitals: Vital Signs - 12hr 07/05/17 07/05/17 07/05/17 08:00 08:19 08:21 Temperature 97.7 F Pulse Rate 98 H Pulse Rate [ 85 84 Anterior Bilateral Throughout] Respiratory 18 Rate Respiratory 18 18 Rate [Anterior Bilateral Throughout] Blood Pressure 130/79 O2 Sat by Pulse 94 Oximetry 07/05/17 07/05/17 13:11 13:17 Temperature Pulse Rate Pulse Rate [ 85 88 Anterior Bilateral Throughout] Respiratory Rate Respiratory 18 18 Rate [Anterior Bilateral Throughout] Blood Pressure O2 Sat by Pulse Oximetry General appearance: Present: no acute distress - EENT Eyes: EOM intact ENT: hearing intact - Respiratory Respiratory effort: normal Extremities: normal temperature - Neurologic Neurologic: no focal deficits - Psychiatric Psychiatric: appropriate mood/affect, intact judgment & insight, cooperative - Labs CBC & Chem 7: 07/04/17 06:07 07/04/17 06:07
[2017-07-05] MEDS: HABITROL TD SCH (21:38)
[2017-07-06] MEDS: HEPARIN SUB-Q SCH ×3 (05:52→21:28)
[2017-07-06] MEDS: SYNTHROID PO SCH ×2 (05:53)
[2017-07-06] MEDS: DUONEB *Not for PRN Use IH SCH ×3 (08:07→20:13)
[2017-07-06] MEDS: PLAVIX PO SCH (10:00)
[2017-07-06] MEDS: PLETAL PO SCH ×2 (10:00→21:30)
[2017-07-06] MEDS: LOPRESSOR PO SCH (10:32)
[2017-07-06] MEDS: LEVAQUIN PO SCH (10:32)
[2017-07-06] MEDS: DITROPAN PO SCH ×2 (10:32→21:29)
[2017-07-06] MEDS: PEPCID PO SCH ×2 (10:32→21:31)
--- NOTE | 2017-07-06 11:09 | Progress Note ---
Assessment and Plan Assessment and plan: COPD exacerbation Duonebs IV abx and iv solumedrol Chest pain F/U Lexiscan today. CE are negative. Echocardiogram reveals global left ventricular systolic function that is normal with EF of 55%. Abnormal left ventricular diastolic filling consistent with impaired relaxation. Carotid stenosis. Patient with occluded left common carotid artery and left ICA. Right ICA with 50-79% stenosis. Vascular following. Patient will need right carotid endarterectomy. Continue Plavix and statin therapy. Peripheral vascular disease Cont. Plavix. Patient with probable occlusion or stenosis of right iliac arteries. Vascular surgery will defer treatment until she recovers from carotid surgery. HTN (hypertension) Cont antihyertensives Hypothyroidism (acquired) Cont Levothyroxine Nicotine dependence Counseled in the ER on admission. Pt. reports 42 pack year history Urinary incontinence Continue ditropan DVT prophylaxis On Lovenox History Interval history: No new c/o CP. Hospitalist Physical - Constitutional Vitals: Temp Pulse Resp BP Pulse Ox 98.8 F 1 L 18 156/83 95 07/06/17 08:30 07/06/17 10:32 07/06/17 08:30 07/06/17 08:30 07/06/17 08:30 General appearance: Present: no acute distress - EENT Eyes: Present: PERRL, EOM intact ENT: hearing intact, clear oral mucosa, dentition normal - Neck Neck: Present: supple, normal ROM - Respiratory Respiratory effort: normal Respiratory: bilateral: CTA - Cardiovascular Rhythm: regular Heart Sounds: Present: S1 & S2. Absent: gallop, rub - Extremities Extremities: no ischemia, No edema, Full ROM - Abdominal General gastrointestinal: soft, non-tender, non-distended, normal bowel sounds - Integumentary Integumentary: Present: clear, warm, dry - Neurologic Neurologic: CNII-XII intact, moves all extremities Results - Labs CBC & Chem 7: 07/04/17 06:07 07/04/17 06:07 Labs: Laboratory Last Values WBC 9.9 K/mm3 (4.5-11.0) 07/04/17 06:07 RBC 4.08 M/mm3 (3.65-5.03) 07/04/17 06:07 Hgb 12.5 gm/dl (10.1-14.3) 07/04/17 06:07 Hct 37.2 % (30.3-42.9) 07/04/17 06:07 MCV 91 fl (79-97) 07/04/17 06:07 MCH 31 pg (28-32) 07/04/17 06:07 MCHC 34 % (30-34) 07/04/17 06:07 RDW 14.9 % (13.2-15.2) 07/04/17 06:07 Plt Count 225 K/mm3 (140-440) 07/04/17 06:07 Lymph % (Auto) 9.7 % (13.4-35.0) L 07/04/17 06:07 Bell % (Auto) 7.2 % (0.0-7.3) 07/04/17 06:07 Eos % (Auto) 0.0 % (0.0-4.3) 07/04/17 06:07 Baso % (Auto) 0.1 % (0.0-1.8) 07/04/17 06:07 Lymph # 1.0 K/mm3 (1.2-5.4) L 07/04/17 06:07 Bell # 0.7 K/mm3 (0.0-0.8) 07/04/17 06:07 Eos # 0.0 K/mm3 (0.0-0.4) 07/04/17 06:07 Baso # 0.0 K/mm3 (0.0-0.1) 07/04/17 06:07 Seg Neutrophils % 83.0 % (40.0-70.0) H 07/04/17 06:07 Seg Neutrophils # 8.2 K/mm3 (1.8-7.7) H 07/04/17 06:07 D-Dimer 489.27 ng/mlDDU (0-234) H 07/02/17 08:35 POC ABG pH 7.380 (7.35-7.45) 07/02/17 13:46 POC ABG pCO2 29.9 (35-45) L 07/02/17 13:46 POC ABG pO2 62 (80-105) L 07/02/17 13:46 POC ABG HCO3 17.7 07/02/17 13:46 POC ABG Total CO2 19 07/02/17 13:46 POC ABG O2 Sat 91 07/02/17 13:46 POC ABG Base Excess -7 07/02/17 13:46 FiO2 21 % 07/02/17 13:46 Sodium 140 mmol/L (137-145) 07/04/17 06:07 Potassium 4.6 mmol/L (3.6-5.0) 07/04/17 06:07 Chloride 102.0 mmol/L (98-107) 07/04/17 06:07 Carbon Dioxide 23 mmol/L (22-30) 07/04/17 06:07 Anion Gap 20 mmol/L 07/04/17 06:07 BUN 21 mg/dL (7-17) H 07/04/17 06:07 Creatinine 0.6 mg/dL (0.7-1.2) L 07/04/17 06:07 Estimated GFR > 60 ml/min 07/04/17 06:07 BUN/Creatinine Ratio 35 % 07/04/17 06:07 Glucose 165 mg/dL (65-100) H 07/04/17 06:07 Hemoglobin A1c 5.6 % (4-6) 07/02/17 23:42 Calcium 8.7 mg/dL (8.4-10.2) 07/04/17 06:07 Total Bilirubin < 0.20 mg/dL (0.1-1.2) 07/03/17 07:36 AST 16 units/L (5-40) 07/03/17 07:36 ALT 34 units/L (7-56) 07/03/17 07:36 Alkaline Phosphatase 95 units/L (35-129) 07/03/17 07:36 Troponin T < 0.010 ng/mL (0.00-0.029) 07/04/17 06:07 NT-Pro-B Natriuret Pep 332.7 pg/mL (0-900) 07/02/17 08:35 Total Protein 7.3 g/dL (6.3-8.2) 07/03/17 07:36 Albumin 4.0 g/dL (3.9-5) 07/03/17 07:36 Albumin/Globulin Ratio 1.2 % 07/03/17 07:36 Urine Color Yellow (Yellow) 07/02/17 09:05 Urine Turbidity Clear (Clear) 07/02/17 09:05 Urine pH 5.0 (5.0-7.0) 07/02/17 09:05 Ur Specific [place] 1.010 (1.003-1.030) 07/02/17 09:05 Urine Protein <15 mg/dl mg/dL (Negative) 07/02/17 09:05 Urine Glucose (UA) Neg mg/dL (Negative) 07/02/17 09:05 Urine Ketones Neg mg/dL (Negative) 07/02/17 09:05 Urine Blood Sm (Negative) 07/02/17 09:05 Urine Nitrite Neg (Negative) 07/02/17 09:05 Urine Bilirubin Neg (Negative) 07/02/17 09:05 Urine Urobilinogen < 2.0 mg/dL (<2.0) 07/02/17 09:05 Ur Leukocyte Esterase Neg (Negative) 07/02/17 09:05 Urine WBC (Auto) < 1.0 /HPF (0.0-6.0) 07/02/17 09:05 Urine RBC (Auto) 1.0 /HPF (0.0-6.0) 07/02/17 09:05 U Epithel Cells (Auto) 1.0 /HPF (0-13.0) 07/02/17 09:05 Urine Mucus Few /HPF 07/02/17 09:05 Influenza A (Rapid) Negative (Negative) 07/03/17 11:45 Influenza B (Rapid) Negative (Negative) 07/03/17 11:45
[2017-07-06] MEDS ORDERED: TYLENOL PO PRN (14:24)
[2017-07-06] MEDS ORDERED: AMBIEN PO PRN (14:25)
[2017-07-06] MEDS: TYLENOL PO PRN (14:46)
--- NOTE | 2017-07-06 15:58 | Progress Note ---
Assessment and Plan CT scan of the head and neck and duplex are reviewed with a left common carotid occlusion, reconstitution of the left internal carotid artery from possibly the left external carotid artery, and at least 80% narrowing of the right internal carotid artery. The CT images were reviewed and, in conjunction with carotid ultrasound demonstrating a ratio greater than 4, this is at least 80% narrowed. Recommend cardiology consult for cardiac clearance as well as for her complaints of shortness of breath with exertion and her severe neck pain during her stress test. Once optimized from a cardiac standpoint, then elective endarterectomy can be performed as an outpatient. Explained to the patient that she does not have symptomatic carotid artery stenosis, and proceeding with surgery prior to having cardiac clearance and cardiac medications provided to the patient can result in a poor outcome for her. Recommend statin therapy given carotid artery stenosis. Recommend smoking cessation. Right lower extremity arterial disease will be treated once her carotid artery stenosis is treated. Follow-up as an outpatient. Subjective Date of service: 07/06/17 Interval history: Had a long discussion regarding patient's insurance status (patient believe she had emergency medicaid, case management informed me she has normal medicaid). Case management will see the patient regarding this. Explain the importance of having her cardiac status cleared, and performing the right neck endarterectomy once she has been optimized from a cardiac standpoint. Explain that this can be done as an outpatient as she has no TIA or stroke events related to her carotid stenosis and that this is asymptomatic. Objective - Constitutional Vitals: Vital Signs - 12hr 07/06/17 07/06/17 07/06/17 08:07 08:17 08:30 Temperature 98.8 F Pulse Rate 112 H Pulse Rate [ 85 88 Anterior Bilateral Throughout] Respiratory 18 Rate Respiratory 18 20 Rate [Anterior Bilateral Throughout] Blood Pressure 156/83 O2 Sat by Pulse 95 Oximetry 07/06/17 07/06/17 07/06/17 10:32 13:48 13:58 Temperature Pulse Rate 1 L Pulse Rate [ 106 H 86 Anterior Bilateral Throughout] Respiratory Rate Respiratory 20 20 Rate [Anterior Bilateral Throughout] Blood Pressure O2 Sat by Pulse Oximetry General appearance: Present: no acute distress - EENT Eyes: EOM intact ENT: hearing intact - Respiratory Respiratory effort: normal - Psychiatric Psychiatric: agitated - Labs CBC & Chem 7: 07/04/17 06:07 07/04/17 06:07
[2017-07-06] MEDS: HABITROL TD SCH (21:29)
[2017-07-07] MEDS: SYNTHROID PO SCH ×2 (06:18→06:19)
[2017-07-07] MEDS: HEPARIN SUB-Q SCH ×2 (06:19→15:36)
[2017-07-07 08:50] LABS: Hematocrit 42.4 % (30.3-42.9); Mean Corpuscular HGB Conc 33 % (30-34); Mean Corpuscular Hemoglobin 30 pg (28-32); Mean Corpuscular Volume 91 fl (79-97); Platelet Count 313 K/mm3 (140-440); Red Blood Count 4.67 M/mm3 (3.65-5.03); Red Cell Distribution Width 15.1 % (13.2-15.2)
[2017-07-07] MEDS: DUONEB *Not for PRN Use IH SCH ×2 (09:06→13:55)
[2017-07-07 09:09] LABS: BUN/Creatinine Ratio 34; Blood Urea Nitrogen 24 mg/dL (7-17); Calcium 9.1 mg/dL (8.4-10.2); Hemolysis Index 62
[2017-07-07 11:02] LABS: Basophils % (Manual) 0 % (0.0-1.8); Eosinophils % (Manual) 0 % (0.0-4.3); Total Cells Counted 100
[2017-07-07 11:08] LABS: Platelet Estimate Consistent w Auto; RBC Morphology Normal
--- NOTE | 2017-07-07 11:28 | Consultation ---
History of Present Illness Consult date: 07/07/17 Requesting physician: ANAY HYATT Consult reason: pre op evaluation History of present illness: This is a 62-year-old gentleman with history of COPD smoker hypertension hyperlipidemia and known coronary disease and peripheral vascular disease patient came to the emergency room, concerned about her neck and carotid disease patient also has shortness of breath patient had an echo cardiogram which revealed normal LV function and no significant regurgitations and a nuclear perfusion study no significant ischemia patient's shortness of breath is atypical with and without exertion patient states topical ointment medications as lack of follow-up patient on CTA has been occluded left ICA and a high-grade stenosis in the right ICA patient has claudication symptoms being treated medically. Patient denies any chest pain recurrent and does some atypical shortness of breath times with no nausea no vomiting. Past History Past Medical History: acute [place] (2005 s/p 4 stents), arthritis, CAD, COPD (w/ asthma), hypertension, hyperlipidemia, hypothyroidism, PVD, other (carotid artery disease) Past Surgical History: cholecystectomy, Other (4 coronary stents ; right iliac stent ) Social history: smoking Family history: no significant family history Medications and Allergies Allergies Allergy/AdvReac Type Severity Reaction Status Date / Time NSAIDS (Non-Steroidal AdvReac Unknown Verified 06/05/13 00:07 Anti-Inflamma Home Medications Medication Instructions Recorded Confirmed Last Taken Type Levothyroxine Sodium 137 mcg PO QAM 07/02/17 07/02/17 07/02/17 History [Levothyroxine] Metoprolol [Lopressor] 25 mg PO DAILY 07/02/17 07/02/17 07/02/17 History Active Meds: Active Medications Acetaminophen (Tylenol) 650 mg PO Q4H PRN PRN Reason: Pain MILD(1-3)/Fever >100.5/ÁLVAREZ Last Admin: 07/06/17 14:46 Dose: 650 mg Acetaminophen (Tylenol) 650 mg PO Q6H PRN PRN Reason: Pain, Mild (1-3) Albuterol (Proventil) 2.5 mg IH Q3HRT PRN PRN Reason: Wheezing Albuterol/Ipratropium (Duoneb *Not For Prn Use*) 1 ampul IH TIDRT [facility] Last Admin: 07/07/17 09:06 Dose: 1 ampul Atorvastatin Calcium (Lipitor) 40 mg PO QHS [facility] Benzonatate (Tessalon Perles) 100 mg PO Q8HR PRN PRN Reason: Cough Bisacodyl (Dulcolax) [address] QDAY PRN PRN Reason: Constipation unrelieved by MOM Cilostazol (Pletal) 100 mg PO BID [facility] Last Admin: 07/06/17 21:30 Dose: 100 mg Clopidogrel Bisulfate (Plavix) 75 mg PO QDAY [facility] Last Admin: 07/06/17 10:00 Dose: 75 mg Famotidine (Pepcid) 20 mg PO BID [facility] Last Admin: 07/06/17 21:31 Dose: 20 mg Heparin Sodium (Porcine) (Heparin) 5,000 unit SUB-Q Q8HR [facility] Last Admin: 07/07/17 06:19 Dose: 5,000 unit Hydromorphone HCl (Dilaudid) 0.5 mg IV Q3H PRN PRN Reason: Pain , Severe (7-10) Last Admin: 07/04/17 16:20 Dose: 0.5 mg Isosorbide Mononitrate (Imdur) 30 mg PO QDAY [facility] Levofloxacin (Levaquin) 750 mg PO Q24HR [facility] Last Admin: 07/06/17 10:32 Dose: 750 mg Levothyroxine Sodium (Synthroid) 112 mcg PO DAILY@0600 [facility] Last Admin: 07/07/17 06:18 Dose: 112 mcg Levothyroxine Sodium (Synthroid) 25 mcg PO DAILY@0600 [facility] Last Admin: 07/07/17 06:19 Dose: 25 mcg Magnesium Hydroxide (Milk Of Magnesia) 30 ml PO Q4H PRN PRN Reason: Constipation Methylprednisolone Sodium Succinate (Solu-Medrol) 60 mg IV Q8HR [facility] Last Admin: 07/07/17 06:19 Dose: 60 mg Metoprolol Tartrate (Lopressor) 25 mg PO BID [facility] Nicotine (Habitrol) 21 mg TD QDAY@2200 [facility] Last Admin: 07/06/17 21:29 Dose: 21 mg Ondansetron HCl (Zofran) 4 mg IV Q8H PRN PRN Reason: N/V unrelieved by Reglan Oxybutynin Chloride (Ditropan) 5 mg PO BID [facility] Last Admin: 07/06/17 21:29 Dose: 5 mg Oxycodone/Acetaminophen (Percocet 5/325) 1 tab PO Q6H PRN PRN Reason: Pain, Moderate (4-6) Last Admin: 07/04/17 12:30 Dose: 1 tab Zolpidem Tartrate (Ambien) 5 mg PO QHS PRN PRN Reason: Sleep Last Admin: 07/06/17 21:29 Dose: 5 mg Review of Systems All systems: negative (hpi) Physical Examination Vital Signs Temp Pulse Resp BP Pulse Ox 98 F 98 H 22 196/98 95 07/02/17 08:07 07/02/17 08:07 07/02/17 08:07 07/02/17 08:07 07/02/17 08:07 General appearance: no acute distress, well-nourished HEENT: Positive: PERRL, Mucus Membranes Moist Neck: Positive: neck supple, trachea midline Cardiac: Positive: Reg Rate and Rhythm, S1/S2. Negative: Audible Murmur Lungs: Positive: clear to auscultation, Normal Breath Sounds Neuro: Positive: Grossly Intact Abdomen: Positive: Soft, Active Bowel Sounds. Negative: Tender, Distended Female genitourinary: deferred Skin: Positive: Clear Incision: Cardiac Cath Site Musculoskeletal: No Pain, Normal Range of Motion Extremities: Present: Other (decreased pulses bilaterally). Absent: edema Results 07/07/17 08:16 07/07/17 08:16 CBC 07/07/17 Range/Units 08:16 WBC 10.6 (4.5-11.0) K/mm3 RBC 4.67 (3.65-5.03) M/mm3 Hgb 14.0 (10.1-14.3) gm/dl Hct 42.4 (30.3-42.9) % Plt Count 313 (140-440) K/mm3 Comprehensive Metabolic Panel 07/07/17 Range/Units 08:16 Sodium 136 L (137-145) mmol/L Potassium 5.4 H (3.6-5.0) mmol/L Chloride 94.0 L (98-107) mmol/L Carbon Dioxide 26 (22-30) mmol/L BUN 24 H (7-17) mg/dL Creatinine 0.7 (0.7-1.2) mg/dL Glucose 175 H (65-100) mg/dL Calcium 9.1 (8.4-10.2) mg/dL - Imaging and Cardiology Stress echo: other (07/04/2017 normal myocardial perfusion scan forischemianotednormalLVfunction) Echo: report reviewed (07/04/2017 normal LV function without significant regurgitations) EKG interpretations - Telemetry EKG Rhythm: Sinus Rhythm (normal sinus rhythm nonspecific ST-T) Assessment and Plan Acute on chronic COPD exaggeration Shortness of breath Acute respiratory failure Hypertension Hyperlipidemia Peripheral vascular disease Carotid disease Coronary disease Tobacco abuse Recommend cardio vascular point of view continue beta noemy therapy add long- acting nitrates and statin dual antiplatelet therapy in view of normal LV function echocardiogram and no significant regurgitations and my car perfusion scan reveals no significant ischemia patient is a moderate risk or vascular patient going for moderate risk or vascular procedure for carotid endarterectomy agreed with aggressive medical therapy discussed in detail about patient's findings. Continue treatment for patient's COPD
--- NOTE | 2017-07-07 11:56 | Discharge Summary ---
Providers - Providers Date of Admission: 07/02/17 12:27 Date of discharge: 07/07/17 Attending physician: ANAY HYATT 07/04/17 12:11 Consult to Physician [CONS] Routine Consulting Provider: MARLENE WEBB Reason For Exam: Right LE pain, previous stent Place consult to:: JEVON Jacobson Notified:: Momo Phone number called:: in house Was contact made?: Yes If yes, spoke with:: Momo Time called:: 13:15 07/07/17 10:48 Consult to Cardiology [CONS] Routine Consulting Provider: KASEY SOUZA Reason For Exam: cardiac clearance Primary care physician: MANAGER R D Hospitalization Reason for admission: sob Condition: Stable Hospital course: This is a 62-year-old gentleman with history of COPD smoker hypertension hyperlipidemia and known coronary disease and peripheral vascular disease patient came to the emergency room [facility] c/o shortness of breath and CP. The patient had an echocardiogram which revealed normal LV function and no significant regurgitations and a nuclear perfusion study with no significant ischemia. The patient's shortness of breath is atypical with and without exertion. The patient was treated for COPD exacerbation and received nebulizer treatments, antibiotics and IV Solu-Medrol. Of note, her stress evaluation. Patient complained of neck pain during her stress evaluation and has a history of carotid stenosis. Therefore, patient underwent carotid ultrasound/CTA. CTA revealed occluded left ICA and a high-grade stenosis in the right ICA. Also, patient has claudication symptoms that are being treated medically. The patient was seen by both vascular surgery and cardiology consultation. The consultants felt the patient could be discharged home with beta noemy therapy add long-acting nitrates and statin dual antiplatelet therapy. Cardiology felt that in view of normal LV function echocardiogram and no significant regurgitations and that myocardial perfusion scan revealed no significant ischemia, she is at moderate risk for vascular procedure/carotid endarterectomy. Cardiology recommends aggressive medical therapy. These findings were discussed in detail with the patient. COPD exacerbation, resolved. Therefore, patient will be discharged home. Dedicated discharge time 35 minutes. Disposition: DC-01 TO HOME OR SELFCARE Time spent for discharge: 35 - Discharge Diagnoses (1) Atherosclerosis of [place] arteries of extremity with intermittent claudication Status: Acute (2) COPD exacerbation Status: Acute (3) Carotid occlusion, left Status: Acute (4) Carotid stenosis, right Status: Acute (5) Dyspnea Status: Acute Qualifiers: Dyspnea type: shortness of breath Qualified Code(s): R06.02 - Shortness of breath; R06.00 - Dyspnea, unspecified; R06.01 - Orthopnea (6) Intermittent claudication Status: Acute Core Measure Documentation - Palliative Care Palliative Care/ Comfort Measures: Not Applicable - Core Measures Any of the following diagnoses?: none Exam - Constitutional Vitals: Temp Pulse Resp BP Pulse Ox 98.2 F 98 H 18 132/83 92 07/07/17 07:45 07/07/17 09:19 07/07/17 09:19 07/07/17 07:45 07/07/17 07:45 General appearance: Present: no acute distress, well-nourished - EENT Eyes: Present: PERRL ENT: hearing intact, clear oral mucosa - Neck Neck: Present: supple, normal ROM - Respiratory Respiratory effort: normal Respiratory: bilateral: CTA - Cardiovascular Heart Sounds: Present: S1 & S2. Absent: rub, click - Extremities Extremities: pulses symmetrical, No edema Peripheral Pulses: within normal limits - Abdominal General gastrointestinal: Present: soft, non-tender, non-distended, normal bowel sounds Female genitourinary: Present: normal - Integumentary Integumentary: Present: clear, warm, dry - Musculoskeletal Musculoskeletal: gait normal, strength equal bilaterally - Psychiatric Psychiatric: appropriate mood/affect, intact judgment & insight - Neurologic Neurologic: CNII-XII intact, moves all extremities Plan Activity: advance as tolerated Weight Bearing Status: Weight Bear as Tolerated Diet: low fat, low cholesterol, low salt Follow up with: PRIMARY CAREMD [Primary Care Provider] - 3-5 Days KASEY SOUZA MD [Staff Physician] - 7 Days VEENA SANDHU MD [Staff Physician] - 7 Days Prescriptions: ALBUTEROL NEB's [Proventil 0.083% NEBS] 2.5 mg IH Q3HRT PRN #30 nebu PRN Reason: Wheezing AtorvaSTATin [Lipitor] 40 mg PO QHS #30 tablet Benzonatate [Tessalon Perles] 100 mg PO Q8HR PRN #30 capsule PRN Reason: Cough Cilostazol [Pletal] 100 mg PO BID #60 tablet Clopidogrel [Plavix] 75 mg PO QDAY #30 tablet Ipratropium/Albuterol Sulfate [DUONEB *Not for PRN Use*] 1 ampul IH TIDRT #30 ampul.neb ISOSORBIDE MONOnitrate [Imdur ER] 30 mg PO QDAY #30 tablet Levofloxacin [Levaquin TAB] 750 mg PO Q24HR #30 tablet Levothyroxine Sodium [Levothyroxine] 137 mcg PO QAM #30 tablet Metoprolol [Lopressor TAB] 25 mg PO BID #60 tablet Nicotine [Habitrol] 21 mg TD QDAY@2199 #30 patch Oxybutynin [Ditropan] 5 mg PO BID #60 tablet oxyCODONE /ACETAMINOPHEN [Percocet 5/325 mg] 1 tab PO Q6H PRN #30 tablet PRN Reason: Pain, Moderate (4-6) Zolpidem [Ambien] 5 mg PO QHS PRN #30 tablet PRN Reason: Sleep
[2017-07-07] MEDS: LEVAQUIN PO SCH (13:51)
[2017-07-07] MEDS: PLETAL PO SCH (13:51)
[2017-07-07] MEDS: PLAVIX PO SCH (13:51)
[2017-07-07] MEDS: DITROPAN PO SCH (13:51)
[2017-07-07] MEDS: PEPCID PO SCH (13:51)
[2017-07-07] MEDS: LOPRESSOR PO SCH (13:53)
[2017-07-07] MEDS: TYLENOL PO PRN (14:15)
[2017-07-07 17:11] VITALS: BP 112/73
[2017-07-07] MEDS ORDERED: LOPRESSOR PO SCH (22:00)
[2017-07-08] MEDS ORDERED: IMDUR PO SCH (10:00)
== END 2017-07-07 17:00 | disposition home or self-care (01) | DRG 299 ==
LOC: ED 07:56 → 3A 12:27
PROVIDERS: ADMIT Internal Medicine; ATTEND Hospitalist
PROC: 4A033R1 Measurement of Arterial Saturation, Peripheral, Percutaneous Approach (ICD-10-PCS; 2017-07-02)
PROC: 3E0234Z Introduction of Serum, Toxoid and Vaccine into Muscle, Percutaneous Approach (ICD-10-PCS; principal; 2017-07-03)
DX: I70.219 Atherosclerosis of native arteries of extremities with intermittent claudication, unspecified extremity (principal); J96.00 Acute respiratory failure, unspecified whether with hypoxia or hypercapnia; J44.1 Chronic obstructive pulmonary disease with (acute) exacerbation; I10 Essential (primary) hypertension; E03.9 Hypothyroidism, unspecified; R32 Unspecified urinary incontinence; F17.200 Nicotine dependence, unspecified, uncomplicated; I25.10 Atherosclerotic heart disease of native coronary artery without angina pectoris; I65.23 Occlusion and stenosis of bilateral carotid arteries; M19.90 Unspecified osteoarthritis, unspecified site; E78.5 Hyperlipidemia, unspecified; Z23 Encounter for immunization; I25.2 Old myocardial infarction; Z95.5 Presence of coronary angioplasty implant and graft; Z90.49 Acquired absence of other specified parts of digestive tract
CPT/HCPCS: 36415; 36600; 70496; 70498; 71045; 71275; 78452; 80048; 80053; 81001; 82803; 83036; 83880; 84484; 85007; 85025; 85379; 87400; 90686; 93005; 93010; 93017; 93306; 93880; 93922; 93925; 94640; 99406; A9502; J0360; J1170; J1644; J1956; J2785; J2930; Q9967

== ENCOUNTER 2021-07-08 19:08 | Emergency (ER) | payer SELFPAY | END 2021-07-09 09:30 | disposition left against medical advice (07) | LOC: ED 19:08 | DX: R07.89 Other chest pain (principal); Z53.21 Procedure and treatment not carried out due to patient leaving prior to being seen by health care provider ==

== ENCOUNTER 2021-10-30 11:08 | Emergency (ER) | payer SELFPAY ==
--- NOTE | 2021-10-30 11:50 | XRay Report ---
CHEST 2 VIEWS INDICATION / CLINICAL INFORMATION: Chest Pain. COMPARISON: 06/05/13. FINDINGS: SUPPORT DEVICES: None. HEART / MEDIASTINUM: The heart size and pulmonary vasculature are normal. There are moderate diffuse atherosclerotic calcifications involving the thoracic aorta without aneurysm.. LUNGS / PLEURA: No significant pulmonary or pleural abnormality. No pneumothorax. ADDITIONAL FINDINGS: There is a severe compression fracture of a lower thoracic vertebral body, age i ndeterminant. IMPRESSION: 1. No acute pulmonary disease. 2. Severe compression fracture of a lower thoracic vertebral body is of uncertain age. Signer Name: Kt Ansari MD Signed: 10/30/2021 11:46 AM Workstation Name: [id number]
[2021-10-30 12:57] LABS: Alanine Aminotransferase 17 units/L (7-56); Albumin 4.2 g/dL (3.9-5); BUN/Creatinine Ratio 24; Blood Urea Nitrogen 19 mg/dL (7-17); Calcium 9.1 mg/dL (8.4-10.2); Hemolysis Index 7
[2021-10-30 13:17] LABS: INR 0.89 (0.87-1.13)
[2021-10-30 13:18] LABS: Partial Thromboplastin Time 31.4 Sec. (24.2-36.6)
[2021-10-30 13:28] LABS: Basophils % (Auto) 0.2 % (0.0-1.8); Eosinophils # (Auto) 0.3 K/mm3 (0.0-0.4); Eosinophils % (Auto) 4.1 % (0.0-4.3); Hematocrit 43.1 % (30.3-42.9); Hemoglobin 14.4 gm/dl (10.1-14.3); Lymphocytes # (Auto) 2.2 K/mm3 (1.2-5.4); Lymphocytes % (Auto) 27.6 % (13.4-35.0); Mean Corpuscular HGB Conc 34 % (30-34); Mean Corpuscular Volume 91 fl (79-97); Monocytes # (Auto) 0.6 K/mm3 (0.0-0.8); Platelet Count 257 K/mm3 (140-440); Red Blood Count 4.75 M/mm3 (3.65-5.03); Red Cell Distribution Width 14.5 % (13.2-15.2)
--- NOTE | 2021-10-31 00:58 | Emergency Department Report ---
ED Chest Pain HPI - General Chief Complaint: Chest Pain Stated Complaint: CHEST/ARM PAIN/SHARAD Time Seen by Provider: 10/30/21 23:52 Source: patient Mode of arrival: Ambulatory Limitations: No Limitations - History of Present Illness Initial Comments: 66-year-old female with history of CAD who presents with chest pain that is been going on for about 3 years and only came in tonight because she just got approved for her Medicare insurance and wanted to get evaluated. She said her primary doctor is no longer wanting to take care of her because it does not accept Medicaid. Patient described pain as pressure in the middle of her chest radiating to both left and right of the chest. No fever or chills reported. Patient also reports some undiagnosed COPD and wanted to be evaluated for it. She noted that walking from one block to the other worsening pain. Patient also have history of right CEA 3 years ago. 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 No other modifying or associated factors reported. - Related Data Previous Rx's Medication Instructions Recorded Last Taken Type ALBUTEROL NEB's [Proventil 0.083% 2.5 mg IH Q3HRT PRN #30 nebu 07/07/17 Unknown Rx NEBS] AtorvaSTATin [Lipitor] 40 mg PO QHS #30 tablet 07/07/17 Unknown Rx Benzonatate [Tessalon Perles] 100 mg PO Q8HR PRN #30 capsule 07/07/17 Unknown Rx Clopidogrel [Plavix] 75 mg PO QDAY #30 tablet 07/07/17 09/02/17 06:30 Rx ISOSORBIDE MONOnitrate [Imdur ER] 30 mg PO QDAY #30 tablet 07/07/17 09/02/17 06:30 Rx Ipratropium/Albuterol Sulfate 1 ampul IH TIDRT #30 ampul.neb 07/07/17 08/30/17 Rx [DUONEB *Not for PRN Use*] Levothyroxine Sodium 137 mcg PO QAM #30 tablet 07/07/17 09/02/17 06:30 Rx [Levothyroxine] Metoprolol [Lopressor TAB] 25 mg PO BID #60 tablet 07/07/17 09/02/17 21:00 Rx Nicotine [Habitrol] 21 mg TD QDAY@2200 #30 patch 07/07/17 Unknown Rx Zolpidem [Ambien] 5 mg PO QHS PRN #30 tablet 07/07/17 09/02/17 21:00 Rx cilostazoL [Pletal] 100 mg PO BID #60 tablet 07/07/17 09/02/17 21:00 Rx HYDROcodone/ACETAMINOPHEN [[place] 1 each PO Q6HR PRN #40 tablet 09/05/17 Unknown Rx 7.5-325 Tablet] hydrOXYzine PAMOATE [Vistaril] 25 mg PO Q6HR PRN 5 Days #20 10/31/21 Unknown Rx capsule NS Allergies Allergy/AdvReac Type Severity Reaction Status Date / Time morphine Allergy Unknown Verified 10/31/21 03:12 NSAIDS (Non-Steroidal AdvReac Unknown Verified 06/05/13 00:07 Anti-Inflamma Heart Score - HEART Score History: Moderately suspicious EKG: Non-specific Age: > 65 Risk factors: 1-2 risk factors Troponin: < normal limit HEART Score: 5 - EKG Read Time Time EKG Completed: 23:23 EKG Read Time: 23:49 - Critical Actions Critical Actions: 4-6 pts:12-16.6% risk of adverse cardiac event. Should be admitted ED Review of Systems ROS: Stated complaint: CHEST/ARM PAIN/SHARAD Other details as noted in HPI Comment: All other systems reviewed and negative Respiratory: SOB with exertion Cardiovascular: chest pain ED Past Medical Hx - Past Medical History Hx Hypertension: Yes Hx Heart Attack/AMI: Yes (IN 2005) Hx Congestive Heart Failure: No Hx Diabetes: No Hx Arthritis: Yes Hx Asthma: Yes Hx COPD: Yes Additional medical history: HIGH CHOLESTEROL, peripheral vascular disease, carotid artery disease, aortobifemoral disease, hypothyroid - Surgical History Hx Coronary Stent: Yes (X 4) Hx Cholecystectomy: Yes Additional Surgical History: Ileo-bifemoral bypass surgery - Social History Smoking Status: Current Every Day Smoker - Medications Home Medications: Home Medications Medication Instructions Recorded Confirmed Last Taken Type ALBUTEROL NEB's [Proventil 0.083% 2.5 mg IH Q3HRT PRN #30 nebu 07/07/17 09/02/17 Unknown Rx NEBS] AtorvaSTATin [Lipitor] 40 mg PO QHS #30 tablet 07/07/17 09/02/17 Unknown Rx Benzonatate [Tessalon Perles] 100 mg PO Q8HR PRN #30 capsule 07/07/17 09/02/17 Unknown Rx Clopidogrel [Plavix] 75 mg PO QDAY #30 tablet 07/07/17 09/03/17 09/02/17 06:30 Rx ISOSORBIDE MONOnitrate [Imdur ER] 30 mg PO QDAY #30 tablet 07/07/17 09/03/17 09/02/17 06:30 Rx Ipratropium/Albuterol Sulfate 1 ampul IH TIDRT #30 ampul.neb 07/07/17 09/03/17 08/30/17 Rx [DUONEB *Not for PRN Use*] Levothyroxine Sodium 137 mcg PO QAM #30 tablet 07/07/17 09/03/17 09/02/17 06:30 Rx [Levothyroxine] Metoprolol [Lopressor TAB] 25 mg PO BID #60 tablet 07/07/17 09/03/17 09/02/17 21:00 Rx Nicotine [Habitrol] 21 mg TD QDAY@2200 #30 patch 07/07/17 09/02/17 Unknown Rx Zolpidem [Ambien] 5 mg PO QHS PRN #30 tablet 07/07/17 09/03/17 09/02/17 21:00 Rx cilostazoL [Pletal] 100 mg PO BID #60 tablet 07/07/17 09/03/17 09/02/17 21:00 Rx HYDROcodone/ACETAMINOPHEN [[place] 1 each PO Q6HR PRN #40 tablet 09/05/17 Unknown Rx 7.5-325 Tablet] hydrOXYzine PAMOATE [Vistaril] 25 mg PO Q6HR PRN 5 Days #20 10/31/21 Unknown Rx capsule NS ED Physical Exam - General Limitations: No Limitations General appearance: alert, in no apparent distress - Head Head exam: Present: normal inspection - Eye Eye exam: Present: normal appearance Pupils: Present: normal accommodation - ENT ENT exam: Present: normal exam, normal orophraynx, mucous membranes moist - Neck Neck exam: Present: normal inspection, full ROM, other (right scar tissue from CEA). Absent: tenderness - Respiratory Respiratory exam: Present: normal lung sounds bilaterally. Absent: respiratory distress, chest wall tenderness - Cardiovascular Cardiovascular Exam: Present: regular rate, normal rhythm, normal heart sounds - GI/Abdominal GI/Abdominal exam: Present: soft, normal bowel sounds. Absent: distended, tenderness - Extremities Exam Extremities exam: Present: normal inspection, full ROM, normal capillary refill - Back Exam Back exam: Present: normal inspection, full ROM. Absent: tenderness - Neurological Exam Neurological exam: Present: alert, oriented X3 - Psychiatric Psychiatric exam: Present: normal affect, normal mood - Skin Skin exam: Present: warm, normal color ED Course Vital Signs 10/30/21 10/31/21 10/31/21 11:14 00:46 00:57 Temperature 98.3 F Pulse Rate 91 H 80 Respiratory 18 12 Rate Blood Pressure 163/72 Blood Pressure 196/76 [Left] O2 Sat by Pulse 98 98 100 Oximetry 10/31/21 10/31/21 01:01 01:31 Temperature Pulse Rate Respiratory Rate Blood Pressure 196/76 194/89 Blood Pressure [Left] O2 Sat by Pulse 98 96 Oximetry - Reevaluation(s) Reevaluation #1: 10/31/21 01:00 Here with chest pain/pressure--differential could be but not limited to myocardial infarction, pulmonary embolism, costochondritis, anxiety, gastritis, GERD, pancreatitis, and or pyelonephritis--in order to rule out the above-- so will go ahead and order routine cardiopulmonary work-up that include troponin, EKG, chest x-ray, BNP, CKMB, and CBC, CMP and urinalysis for any correctable infectious process or electrolyte abnormality as a cause. Also considering that this patient has high heart score with medium YOUSUF score--we will go ahead and get at least 2 serial troponin to rule out any cardiac involvement. 10/31/21 01:07 10/31/21 01:08 Initial troponin is very reassuring and within normal limits with unremarkable EKG with no ST elevation or depression--this makes this unlikely cardiac--we will continue to monitor the second troponin before discharge home to follow-up with her cardiology and primary physician. Reevaluation #2: 10/31/21 03:06 Noted with unremarkable work-up including initial troponin but elevated D-dimer at 410 which is concerning for pulmonary embolism so we will go ahead and order CT scan of the chest with contrast to rule it out. 10/31/21 05:18 CTA chest did not show any PE reports accidental finding with single left lower lobe nodule--with old/chronic T10 compression fracture noted--patient reassured to follow-up with cardiology and primary doctor in the next 3 to 5 days for progress. YOUSUF score - Yousuf Score Age > 65: (1) Yes Aspirin use within the Past 7 Days: (0) No 3 or more CAD Risk Factors: (1) Yes 2 or more Angina events in past 24 hrs: (0) No Known CAD with more than 50% Stenosis: (1) Yes Elevated Cardiac Markers: (0) No ST Deviation Greater than 0.5mm: (0) No YOUSUF Score: 3 ED Medical Decision Making - Lab Data Result diagrams: 10/30/21 11:28 10/30/21 11:28 - EKG Data -: EKG Interpreted by [place] EKG shows normal: sinus rhythm Rate: normal - EKG Data Interpretation: nonspecific ST-T wave renaldo 10/31/21 01:06 Noted with normal sinus rhythm at a rate of 83 bpm, with nonspecific ST and T wave abnormality and this abnormal ECG. - Radiology Data FINDINGS: PULMONARY EMBOLUS: None. THORACIC AORTA: Severe atherosclerotic calcification without acute abnormality. HEART: No significant abnormality. CORONARY ARTERY CALCIFICATION: Present -- Moderate. MEDIASTINUM / RACHEAL: No significant abnormality. PLEURA: No pleural effusion. No pneumothorax. LUNGS: No acute air space or interstitial disease. Moderate confluent emphysema Solid 8 mm left lower lobe pulmonary nodule series 2 image 78 ADDITIONAL FINDINGS: None. UPPER ABDOMEN: No acute findings. 1.9 cm hypodense left adrenal nodule diagnostic for benign adenoma. Hypodense plump right adrenal also diagnostic for adenoma. Gallbladder surgically absent. SKELETAL STRUCTURES: Osteopenia with T10 compression fracture with 80% loss vertebral body height. Moderate thoracic spondylosis IMPRESSION: 1. No CT evidence for pulmonary embolism. 2. Single incidental pulmonary nodule(s) in the left lower lobe measuring 8 mm with solid characteristics. Recommendation according to Fleischner Society 2017 Guidelines: Low Risk Patient: CT at 6-12 months, then consider CT at 18-24 months; High Risk Patient: CT at 6- 12 months, then CT at 18-24 months 3. Old T10 compression fracture Critical care attestation.: If time is entered above; I have spent that time in minutes in the direct care of this critically ill patient, excluding procedure time. ED Disposition Clinical Impression: Lung nodule, solitary Chest pain Qualifiers: Chest pain type: unspecified Qualified Code(s): R07.9 - Chest pain, unspecified Compression fracture of T10 vertebra Qualifiers: Encounter type: subsequent encounter Fracture healing: with routine healing Qualified Code(s): S22.070D - Wedge compression fracture of T9-T10 vertebra, subsequent encounter for fracture with routine healing Disposition: 01 HOME / SELF CARE / HOMELESS Is pt being admited?: No Does the pt Need Aspirin: No Condition: Stable Instructions: Nonspecific Chest Pain, Adult Additional Instructions: It is very important that you call and schedule follow-up with your primary doctor/your cardiology in the next 3 to 5 days for progress Please do not hesitate to call or return to emergency room if your symptoms worsen Take your new medication to help your symptoms Prescriptions: hydrOXYzine PAMOATE [Vistaril] 25 mg PO Q6HR PRN 5 Days #20 capsule NS PRN Reason: Pain , Severe (7-10) Referrals: PRIMARY CARE, [Primary Care Provider] - 3-5 Days Time of Disposition: 05:21
--- NOTE | 2021-10-31 04:09 | Cat Scan Report ---
CTA CHEST WITH CONTRAST INDICATION / CLINICAL INFORMATION: CP with elevated d-dimer. TECHNIQUE: Axial CT images were obtained through the chest after injection of 100 cc Omni 350 IV cont rast. 3 plane MIP and/or 3D reconstructions were produced. All CT scans at this location are performe d using CT dose reduction for ALARA by means of automated exposure control. COMPARISON: None available. FINDINGS: PULMONARY EMBOLUS: None. THORACIC AORTA: Severe atherosclerotic calcification without acute abnormality. HEART: No significant abnormality. CORONARY ARTERY CALCIFICATION: Present -- Moderate. MEDIASTINUM / RACHEAL: No significant abnormality. PLEURA: No pleural effusion. No pneumothorax. LUNGS: No acute air space or interstitial disease. Moderate confluent emphysema Solid 8 mm left lower lobe pulmonary nodule series 2 image 78 ADDITIONAL FINDINGS: None. UPPER ABDOMEN: No acute findings. 1.9 cm hypodense left adrenal nodule diagnostic for benign adenoma. Hypodense plump right adrenal also diagnostic for adenoma. Gallbladder surgically absent. SKELETAL STRUCTURES: Osteopenia with T10 compression fracture with 80% loss vertebral body height. Mo derate thoracic spondylosis IMPRESSION: 1. No CT evidence for pulmonary embolism. 2. Single incidental pulmonary nodule(s) in the left lower lobe measuring 8 mm with solid characteris tics. Recommendation according to Fleischner Society 2017 Guidelines: Low Risk Patient: CT at 6-12 mo nths, then consider CT at 18-24 months; High Risk Patient: CT at 6-12 months, then CT at 18-24 months 3. Old T10 compression fracture Signer Name: Noe Olsen MD Signed: 10/31/2021 4:05 AM Workstation Name: [email or web address]
[2021-10-31 06:09] VITALS: BP 168/77
--- NOTE | 2021-10-31 12:24 | Electrocardiograph Report ---
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
== END 2021-10-31 06:09 | disposition home or self-care (01) ==
LOC: ED 11:08
DX: S22.079A Unspecified fracture of T9-T10 vertebra, initial encounter for closed fracture (principal); R07.9 Chest pain, unspecified; R91.1 Solitary pulmonary nodule; I10 Essential (primary) hypertension; M19.90 Unspecified osteoarthritis, unspecified site; J44.9 Chronic obstructive pulmonary disease, unspecified; E78.00 Pure hypercholesterolemia, unspecified; I73.9 Peripheral vascular disease, unspecified; E03.9 Hypothyroidism, unspecified; Z98.890 Other specified postprocedural states; F17.290 Nicotine dependence, other tobacco product, uncomplicated; Z88.5 Allergy status to narcotic agent; Z88.6 Allergy status to analgesic agent; X58.XXXA Exposure to other specified factors, initial encounter; Y93.89 Activity, other specified; Y92.89 Other specified places as the place of occurrence of the external cause; Y99.8 Other external cause status
CPT/HCPCS: 36415; 71046; 71275; 80053; 84484; 85025; 85379; 85610; 85730; 93005; 99284; Q9967